=== PATIENT | female | born 1960 | race Caucasian/White ===

== ENCOUNTER → 2017-06-13 10:05 | Outpatient (CLI) | payer OTHER, SELFPAY ==
[2017-05-16 12:30] VITALS: BMI 21.4
[2017-05-16 15:32] VITALS: BP 125/83
--- NOTE | 2017-06-13 10:07 | HPBD_ITS ---
STUDY: DUAL ENERGY X-RAY ABSORPTIOMETRY / DXA REASON FOR EXAM: Female, 57 years old. The patient is postmenopausal. No loss of height. TECHNIQUE: Bone Mineral Density (BMD) measurements of lumbar spine and bilateral hips were obtained. COMPARISON: Comparison is made with prior study dated November 28, 2011. FINDINGS: Lumbar Spine (L1-L4): g/cm2 (1.059) / T-score (-0.9) / Z-score (0.0) Findings are suggestive of normal bone density with a low fracture risk. Increased kyphosis. Left Femur Total: g/cm2 (0.991) / T-score (-0.1) / Z-score (0.6) Left Femoral Neck: g/cm2 (0.908) / T-score (-0.9) / Z-score (0.1) Right Femur Total: g/cm2 (0.971) / T-score (-0.3) / Z-score (0.4) Right Femoral Neck: g/cm2 (0.857) / T-score (-1.3) / Z-score (-0.2) The T-Scores on the most recent prior examination were: Lumbar Spine (L1-L4): There has been worsening of bone density since the previous examination. Left Femur Total: which represents a worsening of 5.3%. Right Femur Total: which represents a worsening of 4.0%. HPBD/Dexa Bone Density Study (HP) IMPRESSION: The patient is considered osteopenic as outlined below according to World [employer] Organization (WHO) criteria with a moderate fracture risk. There has been worsening of bone density since the previous examination. Reference Information: The T-score is the number of standard deviations above or below the standard which is normal for young adults at their peak bone mineral density. The World Health Organization (WHO) interprets the T-scores as follows: Above -1 Normal bone density Between -1 and -2.5 Osteopenia Equal to / or below -2.5 Osteoporosis As a practical clinical guideline, osteopenia may be graded as follows: Mild -1 through -1.5 Moderate -1.6 through -2.0 Severe -2.1 through -2.4 The Z-score is the number of standard deviations above or below age-matched controls. A Z-score of less than -1.5 would be considered abnormal. References: 1. NIH Osteoporosis and Related Bone Diseases http://www.osteo.org 2. International Society for Clinical Densitometry http://www.iscd.org 3. National Osteoporosis Foundation http://www.nof.org Electronically Signed: Dae Hollins MD at 11:01 EST Tel [phone], Service support ,
== END ==
PROVIDERS: Family Provider Family Medicine; PCP Family Medicine; Visit Provider Family Medicine
DX: Z78.0 Asymptomatic menopausal state (principal); M81.0 Age-related osteoporosis without current pathological fracture; M85.80 Other specified disorders of bone density and structure, unspecified site
CPT/HCPCS: 77080

== ENCOUNTER → 2017-06-18 06:57 | Outpatient (CLI) | payer OTHER, SELFPAY ==
--- NOTE | 2017-06-19 07:36 | PFT ---
INTRODUCTION: The patient is a 57-year-old female currently under the care of Dr. Hanson the presents for pulmonary function testing secondary to a diagnosis of shortness of breath. Respiratory therapy reports good patient effort and reports no other concerns. Bronchodilators were used during testing. INTERPRETATION: Forced expiration spirometry demonstrates no evidence of a large airways obstructive ventilatory defect. There was no significant response to aerosolized bronchodilators, based upon strict ATS criteria. Spirograms are of good quality and plateau normally. The respiratory flow volume loop appears normal. Body plethysmography was performed and reveals lung volumes to be within normal limits. The airway resistance is within normal limits. Diffusing capacity by single breath CO is within normal limits at 84% of predicted. IMPRESSION: These pulmonary function studies are essentially within normal limits. There are no previous PFTs for comparison. Clinical correlation is recommended.
== END ==
PROVIDERS: Family Provider Family Medicine; PCP Family Medicine; Visit Provider Family Medicine
DX: R06.00 Dyspnea, unspecified (principal)
CPT/HCPCS: 94060; 94726; 94729

== ENCOUNTER → 2017-08-01 11:48 | Outpatient (CLI) | payer OTHER, SELFPAY ==
[2017-08-02 10:29] LABS: Absolute Lymphocyte Count 0.88 X10^3/ul (0.83-4.51); Absolute Neutrophil Count 4.3 X10^3/uL (2.0-7.7); Basophil# 0.02 X10^3/uL; Basophil% 0.3 % (0-1); Eosinophil# 0.03 X10^3/uL; Eosinophils% 0.5 % (0-5); Lymphocyte # 0.88 X10^3/ul (4.0); Lymphocyte % 14.8 % (19-41); Mean Corp Hgb Conc 33.3 g/gl (32-36); Mean Corpuscular Hgb 32.2 pg (27.0-32.0); Mean Corpuscular Volume 96.5 fL (81-99); Mean Platelet Vol. 9.7 fl (6.2-12.0); Monocyte# 0.67 X10^3/uL; Monocyte% 11.3 % (0-10); Neutrophil # 4.34 X10^3/uL (2.7-7.7); Neutrophil % 72.9 % (47-70); POSITIVE COUNT NO; POSITIVE DIFFERENTIAL NO; POSITIVE MORPHOLOGY NO; Platelet Count 217 K/mm3 (150-450); RBC Distribution Width CV 12.6 % (11.6-14.6); RBC Distribution Width SD 42.8 fl (35.1-43.9); Red Blood Count 3.73 M/mm3 (4.2-5.4)
== END ==
PROVIDERS: Family Provider Family Medicine; PCP Family Medicine; Visit Provider Family Medicine
DX: R50.9 Fever, unspecified (principal); R30.0 Dysuria
CPT/HCPCS: 36415; 85025

== ENCOUNTER → 2017-08-02 13:28 | Outpatient (CLI) | payer OTHER, SELFPAY | PROVIDERS: Family Provider Family Medicine; PCP Family Medicine; Visit Provider Family Medicine | DX: R50.9 Fever, unspecified (principal); R30.0 Dysuria | CPT/HCPCS: 87077; 87086; 87088 ==

== ENCOUNTER 2017-08-03 14:35 | Emergency (ER) | payer OTHER, SELFPAY ==
[2017-08-03 14:35] VITALS: BP 116/69; PULSE 104; RESP 18; TEMP 36.7; O2SAT 99; BMI 21.3
[2017-08-03 14:56] VITALS: PULSE 97; RESP 12; TEMP 36.9; O2SAT 96
--- NOTE | 2017-08-03 15:03 | RAD_ITS ---
STUDY: X-RAY CHEST REASON FOR EXAM: Female, 57 years old. Fever for 7 days, flulike symptoms TECHNIQUE: Single AP portable view of the chest. COMPARISON: 08/26/2013 FINDINGS: The lungs are hyperinflated. There is no focal consolidation. There is no demonstrated pleural abnormality. Normal size heart. Normal mediastinum and arvind. Normal visualized pulmonary arteries. Normal visualized aortic arch and descending thoracic aorta. Normal visualized thoracic spine. Normal visualized ribs, clavicles, and shoulders. Metallic densities along the inferior spine suggest spinal fusion hardware. RAD/Chest 1 View (Portable) IMPRESSION: Hyperinflation. No focal consolidation. Electronically Signed: Isauro Armstrong DO at 15:36 EDT Tel , Service support ,
--- NOTE | 2017-08-03 15:08 | ED.DCSUM_ITS ---
- ER Visit Summary Date of Service: 08/03/17 Chief Complaint: Fever History of Present Illness: The patient is a 57 F presenting with fever ?7 days. Patient states she has had diffuse myalgias. She has had temperatures up to 102.5. She complains of chills. She has had a cough which is mildly productive of sputum. She denies chest pain or shortness of breath. Denies abdominal pain, nausea, vomiting, diarrhea. Denies urinary complaints. She did receive a flu shot this year. Her last Motrin was 11 AM. She has history of breast cancer. She finished chemo in 2016. She is currently on tamoxifen. She was advised by her oncologist to come to the ED. Physical Examination: Vitals are stable. Patient is afebrile. Alert no acute distress. HEENT exam is unremarkable. Pharynx is normal, uvula is midline. Neck is supple. No meningismus Lungs are clear and equal bilaterally. Heart is regular rate and rhythm. Abdomen is soft nontender nondistended. No rebound or guarding Extremities are unremarkable. Skin is warm and dry. No rash No focal neurologic deficit. Remainder of exam is unremarkable. Emergency Department Course and Treatment: Patient was given IV fluids. CBC is unremarkable. Chemistries are normal. Urinalysis unremarkable. Lactic acid is normal. Chest x-ray shows no evidence of consolidation. Influenza is negative. Patient is resting comfortably in the emergency department. She continues to be afebrile. She is advised that despite her negative influenza test she may still have influenza. She is advised to continue fluids and monitoring her temperature at home. Discussed with Dr. Arndt covering for Dr. De La Rosa. agrees with outpatient follow-up. Patient is advised signs and symptoms for which to return to the ED. Disposition: Discharge home Impression: Viral syndrome This note was generated with [employer] dictation software. It may contain incorrect words, spelling, and punctuation that were not noted in review of the chart prior to signing ED Disposition - Plan for ED Patient: Chief Complaint: Fever Instructions: ED Flu Referrals: Liz Hanson DO [Primary Care Provider] -
[2017-08-03 15:11] LABS: Bacteria 0 SEEN /hpf (None Seen); Mucous, Urine 0 SEEN /hpf (<or=2+); Red Blood Cells-Urine 0 SEEN /hpf (0-5)
[2017-08-03 15:14] LABS: Color, Urine Yellow (Yellow); Glucose, Dipstick Normal (Normal); Ketone-Dipstick Negative (Negative); Leukocyte Esterase-Dipstick 500 /ul (Negative); Nitrite-Dipstick Negative (Negative); Occult Blood-Urine 25 /ul (Negative); Protein-Dipstick Negative (Negative); Specific Gravity, Urine 1.005 (1.002-1.030); Urine Bilirubin Dipstick Negative (Negative); Urine Clarity Clear (Clear); Urine Urobilinogen Normal (Normal); Urine pH 6.5 (5.0 - 8.0)
[2017-08-03] MEDS: 0.9% Normal Saline 1,000 ML 1000 ML IV (15:18)
[2017-08-03 15:23] LABS: Anion Gap 8 (5-15); BUN 15 mg/dL (7-18); BUN/Creat Ratio 19.9 RATIO (10-20); Calcium,Total 8.6 mg/dL (8.5-10.1); Chloride 104 mmol/L (98-107); Creatinine, Serum 0.75 mg/dL (0.55-1.02); EST Glomerular Filtration Rate 84 mL/min (>60); Est Glom Filt Rate - Afr Amer 102 mL/min (>60); Estimated Creatinine Clearance 69.28 ml/min; Glucose 132 mg/dL (74-106); Potassium 3.7 mmol/L (3.5-5.1); Sodium Level 138 mmol/L (136-145)
[2017-08-03 15:29] LABS: Absolute Lymphocyte Count 1.13 X10^3/ul (0.83-4.51); Absolute Neutrophil Count 6.6 X10^3/uL (2.0-7.7); Basophil# 0.04 X10^3/uL; Basophil% 0.5 % (0-1); Eosinophil# 0.03 X10^3/uL; Eosinophils% 0.4 % (0-5); Hemoglobin 11.4 g/dl (12.0-15.0); Lymphocyte # 1.13 X10^3/ul (4.0); Lymphocyte % 13.3 % (19-41); Mean Corp Hgb Conc 32.6 g/gl (32-36); Mean Corpuscular Volume 95.1 fL (81-99); Mean Platelet Vol. 9.8 fl (6.2-12.0); Monocyte# 0.73 X10^3/uL; Monocyte% 8.6 % (0-10); Neutrophil # 6.55 X10^3/uL (2.7-7.7); Platelet Count 245 K/mm3 (150-450); RBC Distribution Width CV 12.8 % (11.6-14.6); RBC Distribution Width SD 44.2 fl (35.1-43.9); Red Blood Count 3.68 M/mm3 (4.2-5.4); White Blood Count 8.5 K/mm3 (4.4-11.0)
[2017-08-03 15:32] LABS: Lactic Acid 1.9 mmol/L (0.4-2.0); Squamous Epithelial Cells - UA 0-5 SEEN /hpf (5-10); White Blood Cells 0-5 SEEN /hpf (0-5)
[2017-08-03 15:41] LABS: POSITIVE COUNT NO; POSITIVE DIFFERENTIAL NO; POSITIVE MORPHOLOGY NO
[2017-08-03 15:49] VITALS: BP 120/74; PULSE 92; RESP 14; O2SAT 98
[2017-08-03 16:09] VITALS: BP 118/70; PULSE 80; RESP 14; O2SAT 99
[2017-08-03 17:20] VITALS: BP 112/70; PULSE 85; RESP 14; O2SAT 99
--- NOTE | 2017-08-03 17:34 | ED.DEP ---
ED Disposition - Plan for ED Patient: Chief Complaint: Fever Instructions: ED Flu Referrals: Liz Hanson DO [Primary Care Provider] -
[2017-08-03 17:56] VITALS: PULSE 98; RESP 15; O2SAT 96
== END 2017-08-03 17:56 | disposition home or self-care (01) ==
PROVIDERS: Emergency Provider Emergency Medicine; Family Provider Family Medicine; PCP Family Medicine
DX: B34.9 Viral infection, unspecified (principal); R50.9 Fever, unspecified; R05 Cough; M79.1 Myalgia; Z85.3 Personal history of malignant neoplasm of breast; Z92.21 Personal history of antineoplastic chemotherapy; Z79.899 Other long term (current) drug therapy
CPT/HCPCS: 71045; 80048; 81001; 83605; 85025; 87804; 96360; 96361; 99284; J7030; A4216

== ENCOUNTER → 2017-08-15 11:10 | Outpatient (CLI) | payer OTHER, SELFPAY ==
[2017-08-15 12:45] LABS: Vitamin B12 1065 pg/mL (211-911)
== END ==
PROVIDERS: Family Provider Family Medicine; PCP Family Medicine; Visit Provider Internal Medicine Critical Care Medicine
DX: R06.02 Shortness of breath (principal); R53.83 Other fatigue
CPT/HCPCS: 36415; 82607

== ENCOUNTER → 2017-09-20 14:10 | Outpatient (CLI) | payer OTHER, SELFPAY ==
[2017-09-20 15:59] LABS: T4 Total, Thyroxin 9.1 ug/dL (4.8-13.9); Thyroid Stim Hormone (TSH) 1.93 uIU/mL (0.358-3.74)
== END ==
PROVIDERS: Family Provider Family Medicine; PCP Family Medicine; Visit Provider Internal Medicine Cardiovascular Disease
DX: R00.0 Tachycardia, unspecified (principal)
CPT/HCPCS: 36415; 84436; 84443

== ENCOUNTER → 2017-09-24 13:30 | Outpatient (CLI) | payer OTHER, SELFPAY ==
--- NOTE | 2017-09-24 13:32 | CT_ITS ---
STUDY: CT CHEST WITHOUT CONTRAST REASON FOR EXAM: Female, 57 years old. Wheezing. History of breast cancer with bilateral mastectomy, chemotherapy and radiation. RADIATION DOSAGE (If Supplied By Facility): CTDIvol = ( 6.52 ) mGy, DLP = ( 245.87 ) mGycm TECHNIQUE: Transaxial imaging was performed without the administration of intravenous contrast material. Multiplanar coronal and sagittal images were reformatted. Individualized dose optimization techniques were used for this CT. COMPARISON: Chest, August 03, 2017. FINDINGS: The lungs are mildly hyperexpanded. There is minimal subpleural fibrosis in the anterior left upper lobe . The lungs are otherwise clear. There is no demonstrated pleural abnormality. Normal heart and pericardium. There is nonspecific subcentimeter mediastinal lymphadenopathy. Normal hilar regions. Normal unenhanced pulmonary arteries. Normal aorta arch and descending thoracic aorta. There is slight exaggeration of thoracic kyphosis with degenerative changes of thoracic spine. There is no fracture or destructive osseous pathology. There is absence of bilateral breast tissues. There is no evidence of axillary lymphadenopathy or soft tissue abnormality. There is no demonstrated abnormality of the visualized upper abdomen. CT/Chest without Contrast IMPRESSION: 1. Minimal fibrotic changes in the subpleural anterior left upper lobe. This may be related to prior radiation. 2. No evidence of acute intrathoracic abnormality. 3. Status post bilateral mastectomies. Electronically Signed: Gulshan Sanford DO at 14:03 EDT Tel [phone], Service support ,
== END ==
PROVIDERS: Family Provider Family Medicine; PCP Family Medicine; Visit Provider Internal Medicine Critical Care Medicine
DX: R06.02 Shortness of breath (principal); R00.0 Tachycardia, unspecified
CPT/HCPCS: 71250; 93225; 93226

== ENCOUNTER → 2017-10-16 07:07 | Outpatient (CLI) | payer OTHER, SELFPAY ==
--- NOTE | 2017-10-16 15:48 | PFTCOMP ---
COMPLETE PULMONARY FUNCTION TEST INTERPRETATION Brief HPI: Patient is a 57 year old female, currently under the care of myself, who presents to [facility] for complete pulmonary function tests secondary to diagnosis of dyspnea. Respiratory therapist reports good effort and reproducible results. Interpretation: Forced expiration spirometry shows no large airways obstructive ventilatory defect with an FEV1 of 95% predicted. There is no significant bronchodilator response by ATS criteria. Spirograms are of good quality and plateau normally. The respiratory flow volume loop shows a normal pattern. Lung volumes by body plethysmography show a normal total lung capacity at 4.68 L, 99% predicted. All other lung volumes are within normal limits. Diffusion capacity by carbon monoxide is normal at 89% predicted. The airway resistance is normal. Compared to previous pulmonary function tests from to June 18, 2017, there has been a significant improvement in lung volumes. Impression: These pulmonary function tests are within normal limits. There has been improvement in restriction compared to previous studies.
--- NOTE | 2017-10-16 15:51 | PFTCOMP_ITS ---
COMPLETE PULMONARY FUNCTION TEST INTERPRETATION Brief HPI: Patient is a 57 year old female, currently under the care of myself, who presents to [facility] for complete pulmonary function tests secondary to diagnosis of dyspnea. Respiratory therapist reports good effort and reproducible results. Interpretation: Forced expiration spirometry shows no large airways obstructive ventilatory defect with an FEV1 of 95% predicted. There is no significant bronchodilator response by ATS criteria. Spirograms are of good quality and plateau normally. The respiratory flow volume loop shows a normal pattern. Lung volumes by body plethysmography show a normal total lung capacity at 4.68 L , 99% predicted. All other lung volumes are within normal limits. Diffusion capacity by carbon monoxide is normal at 89% predicted. The airway resistance is normal. Compared to previous pulmonary function tests from to June 18, 2017, there has been a significant improvement in lung volumes. Impression: These pulmonary function tests are within normal limits. There has been improvement in restriction compared to previous studies.
== END ==
PROVIDERS: Family Provider Family Medicine; PCP Family Medicine; Visit Provider Internal Medicine Critical Care Medicine
DX: R06.00 Dyspnea, unspecified (principal)
CPT/HCPCS: 94060; 94726; 94729

== ENCOUNTER → 2017-10-16 07:11 | Outpatient (CLI) | payer OTHER, SELFPAY ==
--- NOTE | 2017-10-16 07:11 | ECHOD_ITS ---
Reason For Study: Arrhythmia Procedure This was a 2D Doppler, Color Flow transthoracic echocardiogram. Exam performed in department. Left Ventricle Normal LV size. Left ventricular systolic function is normal. The estimated ejection fraction is 55 %. Transmitral diastolic flow velocities suggest mild (stage 1) diastolic dysfunction (reversed pattern). No regional wall motion abnormalities noted. Right Ventricle Normal RV size. Normal systolic function. Atria Normal left atrium. Normal right atrium. Mitral Valve Normal mitral valve. Trivial eccentric mitral valve insufficiency. Tricuspid Valve Normal tricuspid valve. Mild tricuspid valve insufficiency. Aortic Valve Normal aortic valve. Trisinus/trileaflet aortic valve. Pulmonic Valve Normal pulmonic valve. Great Vessels Normal aortic root. The pulmonary artery is normal size. Normal inferior vena cava. Pericardium/Pleural No pericardial effusion. MMode/2D Measurements & Calculations LVIDd: 4.3 cm IVSd: 0.75 cm Ao root diam: 2.9 cm LVIDs: 3.0 cm LVPWd: 0.68 cm LA dimension: 2.9 cm RVDd: 2.5 cm FS: 30.4 % LAV(MOD-bp): 40.4 ml EDV(MOD-sp4): 82.6 ml SV(MOD-sp4): 48.6 ml LAV(MOD-bp) Indexed: 26.4 ml/m2 ESV(MOD-sp4): 34.0 ml LAV(MOD-sp2): 39.1 ml EF(MOD-sp4): 58.9 % LAV(MOD-sp4): 41.2 ml LA A4 area: 15.4 cm2 RA A4 area: 11.0 cm2 Doppler Measurements & Calculations MV E max silverio: 42.7 cm/sec Lat Peak E' Silverio: 9.1 cm/sec Med Peak E' Silverio: 4.1 cm/sec MV A max silverio: 74.4 cm/sec E/E' lat: 4.7 E/E' med: 10.3 MV E/A: 0.57 Ao V2 max: 130.9 cm/sec LV V1 max: 106.4 cm/sec PA V2 max: 85.9 cm/sec Ao max P.9 mmHg LV V1 max P.5 mmHg Interpretation Summary Normal LV size. Left ventricular systolic function is normal. The estimated ejection fraction is 55 %. Transmitral diastolic flow velocities suggest mild (stage 1) diastolic dysfunction (reversed pattern). Global longitudinal strain of -16(nl) Ordering Physician: Florentino Vargas Referring Physician: Liz Hanson Performed By: Summer Comer RDCS
== END ==
PROVIDERS: Family Provider Family Medicine; PCP Family Medicine; Visit Provider Internal Medicine Cardiovascular Disease
DX: I49.8 Other specified cardiac arrhythmias (principal); I43 Cardiomyopathy in diseases classified elsewhere
CPT/HCPCS: 93306

== ENCOUNTER → 2018-01-02 14:39 | Outpatient (CLI) | payer OTHER, SELFPAY | PROVIDERS: Family Provider Family Medicine; PCP Family Medicine; Visit Provider Surgery | DX: M79.644 Pain in right finger(s) (principal); M60.241 Foreign body granuloma of soft tissue, not elsewhere classified, right hand | CPT/HCPCS: 73140 ==

== ENCOUNTER → 2018-01-24 06:31 | Outpatient (CLI) | payer OTHER, SELFPAY ==
--- NOTE | 2018-01-24 06:33 | MRI_ITS ---
STUDY: MRI RIGHT HAND (ATTENTION THIRD FINGER) REASON FOR EXAM: Redness, swelling and pain of the middle finger. TECHNIQUE: Standardized fat and water weighted pulse sequences were obtained in all 3 orthogonal planes. COMPARISON: Radiographs 01/02/2018. FINDINGS: Normal phalanges and visualized metacarpal of the third finger. Normal flexor and extensor tendons of the third digit. Normal third metacarpophalangeal joint. Normal third proximal and distal interphalangeal joints. There is edema in the subcutis adipose space palmar to the third middle phalanx (inversion recovery sagittal images 8-10; inversion recovery axial images 25, 26) without soft tissue abscess or signal void to indicate foreign body. MRI/Upper Ext/No Jt/ wo IMPRESSION: Edema in the subcutis adipose space palmar to the third middle phalanx without demonstrated signal void to indicate foreign body. Electronically Signed: Angelo Marshall MD at 15:29 EDT Tel , Service support ,
== END ==
PROVIDERS: Family Provider Family Medicine; PCP Family Medicine; Visit Provider Surgery
DX: M79.644 Pain in right finger(s) (principal); M60.241 Foreign body granuloma of soft tissue, not elsewhere classified, right hand
CPT/HCPCS: 73218

== ENCOUNTER → 2018-05-03 10:02 | Outpatient (CLI) | payer OTHER, SELFPAY ==
[2018-03-22 09:44] VITALS: BMI 21.0
--- NOTE | 2018-05-03 10:05 | RAD_ITS ---
STUDY: X-RAY - RIGHT ELBOW REASON FOR EXAM: Female, 58 years old. Elbow pain. TECHNIQUE: 3 view(s) of the elbow. COMPARISON: None. FINDINGS: Normal visualized humerus, radius and ulna. Normal radiocapitellar and ulnotrochlear articulations. The soft tissue structures are unremarkable. RAD/Elbow min 3 Views IMPRESSION: Normal x-ray examination of the elbow. Electronically Signed: Nadeem Ham MD at 17:59 EST , Service support ,
== END ==
PROVIDERS: Family Provider Family Medicine; PCP Family Medicine; Referring Provider Orthopaedic Surgery; Visit Provider Orthopaedic Surgery
DX: M77.01 Medial epicondylitis, right elbow (principal)
CPT/HCPCS: 73080

== ENCOUNTER 2018-05-09 09:54 | Outpatient (RCR) | payer OTHER, SELFPAY ==
[2018-03-22 09:44] VITALS: BMI 21.0
--- NOTE | 2018-05-10 08:08 | HP.OTEVAL ---
Patient's Visit Information CASPER RUBI is a 58 year old F, referred to Occupational Therapy by Anamaria Vargas DO, with a diagnosis of right Med. epicondylitis. Date of Evaluation: 05/09/18 Occupational Therapist: Zuly Levi, OTR/L, CHT - Subjective Subjective: Pt states she has had been painful on and off for two years- states now pain is limiting her use of her right arm during home mtg. tasks and use with daily occupations as driving, dressing and cooking. client states pain does wake her up at night- pt has not tried any conservative surendra/ or bracing at this time. Pt would like to regain strenght and decrease her pain to return to PLOF. - Pain right elbow 3 Pain Intensity Range: 0, 7 - ROM Wrist: WNL - Strength Shoulder: right 4/5 left 5/5 Elbow: right 4/5 left 5/5 Forearm: right 4/5 left 5/5 Wrist: right 4/5 left 5/5 Pharmacy Services Director: right 35# left 45# Lateral Pinch: right 12# left 12# Tripod Pinch: right 10# left 10# Strength Comments: client is right handed - Sensation Thumb: R/L 2.83 Index: R/L 2.83 Middle: R/L 2.83 Ring: R/L 2.83 Little: R/L 2.83 - Special Tests Elbow Flexion/Elbow Exension Test Supine - Elbow Fracture: positive - Goals Goal:: PT will demo an increase in director database strength by 20# to increase independent with basic occupations of daily living to return pt to PLOF by D/C. Goal:: Pt will report pain no greater than 1/10 with use of affected hand with BADLs and IADLs by d/c. Goal:: Pt will demo understanding of work/lifting and carry ergonomics to decrease stress on tendons to increase pts ind. with ADLs and IADLS and work tasks by d/c. - Rehabilitation General Assessment: Pt demo with positive med. epicondylitis- client has had symptoms for greater than 6 months. Pain has decreased pts ind. with BADLs and IADS. Pt demo with a decrease in right UB strength limiting ind. use of her right UE. Pt would benefit from skilled OTR/L, CHT services 2x week for 3-4 weeks. Today therapy ed. pt on what lateral epicondylitis is, and ed. pt on therapist use of modalities, bracing and strengthening to return pt to PLOF. Pt demo understanding and agres of treatment plan. Rehabilitation Potential: Good - Anticipated Interventions Anticipated Interventions: A/AAROM/PROM, Strengthening, Modalities, Orthoses, Home Program - Visit Plan Frequency: 2x /Week Duration: 3 Weeks TEXT: Thank you for the opportunity to evaluate your patient. For Medicare and Medicare HMO plans, please review the plan of care and approve it. It will need to be FAXED BACK to us at [phone] for Medicare purposes. Please let me know if there are questions or concerns regarding this plan of care. Physician Signature: Date:
--- NOTE | 2018-05-10 08:29 | HP.OTEVAL_ITS ---
Patient's Visit Information CASPER RUBI is a 58 year old F, referred to Occupational Therapy by Anamaria Vargas DO, with a diagnosis of right Med. epicondylitis. Date of Evaluation: 05/09/18 Occupational Therapist: Zuly Levi, OTR/L, CHT - Subjective Subjective: Pt states she has had been painful on and off for two years- states now pain is limiting her use of her right arm during home mtg. tasks and use with daily occupations as driving, dressing and cooking. client states pain does wake her up at night- pt has not tried any conservative surendra/ or bracing at this time. Pt would like to regain strenght and decrease her pain to return to PLOF. - Pain right elbow 3 Pain Intensity Range: 0, 7 - ROM Wrist: WNL - Strength Shoulder: right 4/5 left 5/5 Elbow: right 4/5 left 5/5 Forearm: right 4/5 left 5/5 Wrist: right 4/5 left 5/5 Regional Liaison: right 35# left 45# Lateral Pinch: right 12# left 12# Tripod Pinch: right 10# left 10# Strength Comments: client is right handed - Sensation Thumb: R/L 2.83 Index: R/L 2.83 Middle: R/L 2.83 Ring: R/L 2.83 Little: R/L 2.83 - Special Tests Elbow Flexion/Elbow Exension Test Supine - Elbow Fracture: positive - Goals Goal:: PT will demo an increase in branch retail executive strength by 20# to increase independent with basic occupations of daily living to return pt to PLOF by D/C. Goal:: Pt will report pain no greater than 1/10 with use of affected hand with BADLs and IADLs by d/c. Goal:: Pt will demo understanding of work/lifting and carry ergonomics to decrease stress on tendons to increase pts ind. with ADLs and IADLS and work tasks by d/c. - Rehabilitation General Assessment: Pt demo with positive med. epicondylitis- client has had symptoms for greater than 6 months. Pain has decreased pts ind. with BADLs and IADS. Pt demo with a decrease in right UB strength limiting ind. use of her right UE. Pt would benefit from skilled OTR/L, CHT services 2x week for 3-4 weeks. Today therapy ed. pt on what lateral epicondylitis is, and ed. pt on therapist use of modalities, bracing and strengthening to return pt to PLOF. Pt demo understanding and agres of treatment plan. Rehabilitation Potential: Good - Anticipated Interventions Anticipated Interventions: A/AAROM/PROM, Strengthening, Modalities, Orthoses, Home Program - Visit Plan Frequency: 2x /Week Duration: 3 Weeks TEXT: Thank you for the opportunity to evaluate your patient. For Medicare and Medicare HMO plans, please review the plan of care and approve it. It will need to be FAXED BACK to us at [phone] for Medicare purposes. Please let me know if there are questions or concerns regarding this plan of care. Physician Signature: Date:
--- NOTE | 2018-11-19 08:12 | HP.OT.NRP ---
HP - Discharge Summary - Patient Information CASPER RUBI was seen in my office for initial evaluation on 05/09/18. The following Plan of Care was established for this patient: Initial Frequency: 2x /Week Initial Duration: 3 Weeks - Anticipated Interventions Anticipated Interventions: A/AAROM/PROM, Strengthening, Modalities, Orthoses, Home Program This patient was last seen in our office 05/09/18. Pertinent comments regarding their Occupational therapy will appear below: pt was seen for OT eval only- therapist gave info on HEP. pt demo understanding. Pt has not scheduled further apts and due to time lapse in care is d/c at this time. At this point I will be discontinuing this patient from occupational therapy. I would be happy to see this patient again in the future if found appropriate by the physician. Thank you! Zuly Levi, OTR/L, CHT
== END 2018-05-09 19:00 | disposition home or self-care (01) ==
LOC: OT 09:54
PROVIDERS: Family Provider Family Medicine; PCP Family Medicine; Referring Provider Orthopaedic Surgery; Visit Provider Orthopaedic Surgery
DX: M77.01 Medial epicondylitis, right elbow (principal)
CPT/HCPCS: 97035; 97166

== ENCOUNTER → 2018-05-17 07:41 | Outpatient (CLI) | payer OTHER, SELFPAY ==
[2018-05-13 13:48] VITALS: BMI 20.9
--- NOTE | 2018-05-17 07:43 | NM_ITS ---
CLINICAL: 58-year-old female with reported history of primary breast carcinoma with current complaint of bilateral hip pain. WHOLE BODY 99m Tc MDP RADIONUCLIDE BONE SCINTIGRAPHY COMPARISON: None available FINDINGS: Following the intravenous administration of 25.3 mCi of 99m Tc MDP, whole body bone images reveal: 1. Increased radiopharmaceutical concentration is identified in the mid cervical spine posteriorly on the left, the right knee articulation, glenohumeral compartments of both shoulders, dorsal medial compartment of the left ankle. 2. The remaining skeletal structures are scintigraphically unremarkable with normal-appearing renal images and urinary bladder activity identified. NM/Bone Scan Whole Body IMPRESSION: 1. The increase in radiopharmaceutical concentration identified in the cervical spine, bilateral shoulders, right knee and left ankle is commensurate with degenerative arthritis. 2. Meticulous attention paid to the bilateral hip articulations demonstrate no definitive scintigraphic abnormalities. There is no definitive typical evidence of diffuse axial skeletal metastatic disease on the current examination. Electronically Signed: Billy Foster DO at 8:07 EST Tel , Service support ,
== END ==
PROVIDERS: Family Provider Family Medicine; PCP Family Medicine; Referring Provider Internal Medicine Medical Oncology; Visit Provider Internal Medicine Medical Oncology
DX: M25.551 Pain in right hip (principal); M25.552 Pain in left hip; Z85.3 Personal history of malignant neoplasm of breast
CPT/HCPCS: 78306

== ENCOUNTER → 2018-08-06 12:53 | Outpatient (CLI) | payer OTHER, SELFPAY ==
[2018-05-31 09:05] VITALS: BMI 20.9
== END ==
PROVIDERS: Family Provider Family Medicine; PCP Family Medicine; Referring Provider Dermatology; Visit Provider Dermatology
DX: L56.8 Other specified acute skin changes due to ultraviolet radiation (principal); L98.8 Other specified disorders of the skin and subcutaneous tissue; L21.8 Other seborrheic dermatitis; H01.139 Eczematous dermatitis of unspecified eye, unspecified eyelid
CPT/HCPCS: 87070; 87077; 87186; 87205

== ENCOUNTER → 2018-11-19 15:45 | Outpatient (CLI) | payer OTHER, SELFPAY ==
[2018-09-24 15:11] VITALS: BMI 19.8
== END ==
PROVIDERS: Family Provider Family Medicine; PCP Family Medicine; Referring Provider Dermatology; Visit Provider Dermatology
DX: L03.012 Cellulitis of left finger (principal)
CPT/HCPCS: 87070; 87077; 87186; 87205

== ENCOUNTER → 2018-11-26 08:07 | Outpatient (CLI) | payer OTHER, SELFPAY ==
[2018-09-24 15:11] VITALS: BMI 19.8
--- NOTE | 2018-11-26 08:12 | CT_ITS ---
STUDY: CT ABDOMEN AND PELVIS WITH CONTRAST REASON FOR EXAM: Female, 58 years old. Left breast cancer with chemotherapy and radiation. History of bilateral mastectomy. RADIATION DOSAGE (If Supplied By Facility): CTDIvol = ( 9.24 ) mGy, DLP = ( 521.83 ) mGycm TECHNIQUE: Transaxial images were obtained from the dome of the diaphragm to the symphysis pubis with oral contrast. 100CC IV Isovue 300 was administered. Sagittal and coronal images were reconstructed. Individualized dose optimization techniques were used for this CT. COMPARISON: CT of the chest September 10, 2018. FINDINGS: The visualized lung bases are unremarkable. The visualized portions of the heart are within normal limits. Normal liver. Normal gallbladder and extrahepatic biliary system. Normal spleen. Normal pancreas. Normal bilateral adrenal glands. Normal right kidney. Normal left kidney. Normal visualized stomach. Normal small intestine. Normal colon. The appendix is visualized and appears normal. Normal abdominal aorta. Normal inferior vena cava. Normal retroperitoneum. Normal urinary bladder. Status post hysterectomy. There is no pelvic mass or lymphadenopathy. No free air or free fluid is seen within the peritoneal cavity. Normal abdominal wall. There are mild degenerative changes of the lumbar spine with L4-[address]/Abdomen/Pelvis WITH Contrast IMPRESSION: 1. No evidence of metastatic disease. 2. No evidence of acute intra-abdominal or pelvic process. 3. L4-5 fusion. Electronically Signed: Gulshan Sanford DO at 12:05 EDT Tel [phone], Service support ,
--- NOTE | 2018-11-26 08:12 | CT_ITS ---
HISTORY: Left breast carcinoma chemotherapy and history of mastectomy COMPARISON: CT chest 09/24/2017 TECHNIQUE: Helical CT axial images of the thorax with 100 ml of Isovue 300 intravenous contrast. Multiplanar reconstruction. A radiation dose optimization technique was used for this scan. # of images incl. paperwork: [id number] FINDINGS: LUNGS: Hyperinflated lungs. No pulmonary masses or suspicious nodules. No consolidation or atelectasis. MEDIASTINUM: No abnormally enlarged mediastinal or hilar lymph nodes. PLEURA: No pleural effusion. No pneumothorax. CARDIAC: Normal heart size. No pericardial effusion. VASCULAR: Thoracic aorta is normal in caliber without aneurysm. The pulmonary vasculature demonstrates no significant dilatation. CHEST WALL: Status post bilateral mastectomy. No abnormal axillary lymphadenopathy. BONES: Mild thoracic kyphosis. No suspicious osseous lytic or blastic lesions seen. UPPER ABDOMEN: The visualized upper abdomen demonstrates no acute abnormality. CT/Chest WITH Contrast IMPRESSION: 1. No evidence for malignancy or metastatic disease. 2. Hyperinflated lungs. 3. No acute cardiopulmonary disease. 4. Additional stable findings: Status post bilateral mastectomy. Mild thoracic kyphosis. Individualized dose optimization techniques were used for this CT. at 1630 Reported and signed by: Lexa Andrew MD Electronically Signed: Lexa Andrew MD at 16:29 EDT Tel , Service support ,
== END ==
PROVIDERS: Family Provider Family Medicine; PCP Family Medicine; Referring Provider Internal Medicine Medical Oncology; Visit Provider Internal Medicine Medical Oncology
DX: Z85.3 Personal history of malignant neoplasm of breast (principal)
CPT/HCPCS: 71260; 74177; Q9967

== ENCOUNTER → 2019-02-11 10:09 | Outpatient (CLI) | payer OTHER, SELFPAY ==
[2019-02-11 09:57] VITALS: BMI 19.8
--- NOTE | 2019-02-11 10:10 | RAD_ITS ---
STUDY: X-RAY - LEFT ELBOW REASON FOR EXAM: Female, 58 years old. Pain TECHNIQUE: 3 view(s) of the elbow. COMPARISON: None. FINDINGS: Normal visualized humerus, radius and ulna. Normal radiocapitellar and ulnotrochlear articulations. The soft tissue structures are unremarkable. RAD/Elbow min 3 Views IMPRESSION: Normal x-ray examination of the elbow. Electronically Signed: Priyanka Franklin MD at 11:54 EDT , Service support ,
== END ==
PROVIDERS: Family Provider Family Medicine; PCP Family Medicine; Referring Provider Orthopaedic Surgery; Visit Provider Orthopaedic Surgery
DX: M77.12 Lateral epicondylitis, left elbow (principal)
CPT/HCPCS: 73080

== ENCOUNTER 2019-03-12 08:00 | Outpatient (RCR) | payer OTHER, SELFPAY ==
[2019-02-11 10:44] VITALS: BMI 19.8
--- NOTE | 2019-02-28 09:10 | HP.OTEVAL_ITS ---
Patient's Visit Information CASPER RUBI is a 58 year old F, referred to Occupational Therapy by Anamaria Vargas DO, with a diagnosis of right elbow medial epicondylitis, left elbow lateral epicondylitis.. Date of Evaluation: 02/27/19 Occupational Therapist: Zuly Levi, SUKHDEEP/Eliza, CHT - Subjective Subjective: This 58 year old female was seen for OT eval with dx of lat. epi- right started in november- left started in Dec. pt state in Dec she was golfing and she had instant pain- pt states she had injection in both 2 weeks ago-. pt states she continues to struggle with daily tasks due to bilateral elbow pain. pt states currently left is more painful than right. 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 Miscellaneous: Carry shopping bag, Use hand tools, Use power tools, Drive, Carry luggage - Pain right elbow 1 Pain Intensity Range: 1, 6 left elbow 1 Pain Intensity Range: 1, 8 - Strength Shoulder: right 4-/5 left 4/5 Elbow: right 4-/5 left 4/5 Forearm: right 4/5 left 4/5 [employer] Certified Network Associate: right 50# left 45# Lateral Pinch: right 14# left 10# Tripod Pinch: rigjht 10# left 10# Strength Comments: right straight 40# left 25# - Sensation Sensation Comments: denies - Special Tests Lat Epiconylitis - as named: positive left - Goals Goal:: Pt will demo increase in bilateral shoulder strength to 5/5 to return to pLOF with ADLs and IADLS by d/c Goal:: Pt will report pain no greater than 1/10 with use of bilateral UE for IADLs by d/c Goal:: Pt will demo understanding of bilateral activity modification to decrease stress on tendons/ligaments of bilateral UE by 3rd visit. Goal:: pt will return to PLOF with use of joint protection- work ergonomics by d/c - Rehabilitation General Assessment: pt demo with positive medial/lateral epi. pt had cortisone shot with what she feels if fair results. Pt demo with weakness of UB and pain with daily occupations. pt would benefit from skilled OT services 1-2 xweek for 3 weeks to ed. pt on activity modification, lateral epi precautions, and medial epi countor fource measures. Today pt was ed.on RICE- counter fource brace for left elbow, right wrist brace to limit wrist flex/ext. pt ed.on use of K-tape to use with golfing. Therapist initiated isometric shoulder/bicep/tricp ex and gave handout- pt demo understanding and agree to POC. Rehabilitation Potential: Good - Anticipated Interventions Anticipated Interventions: A/AAROM/PROM, Strengthening, Triggerpoint Release, Modalities, Orthoses, Joint Protection/Energy Conservation, Ergonomic Education - Visit Plan Frequency: 1-2x /Week Duration: 4 Weeks TEXT: Thank you for the opportunity to evaluate your patient. For Medicare and Medicare HMO plans, please review the plan of care and approve it. It will need to be FAXED BACK to us at [phone] for Medicare purposes. Please let me know if there are questions or concerns regarding this plan of care. Physician Signat ure: Date:
--- NOTE | 2019-02-28 09:13 | HP.OTEVAL ---
Patient's Visit Information CASPER RUBI is a 58 year old F, referred to Occupational Therapy by Anamaria Vargas DO, with a diagnosis of right elbow medial epicondylitis, left elbow lateral epicondylitis.. Date of Evaluation: 02/27/19 Occupational Therapist: Zuly Levi, SUKHDEEP/Eliza, CHT - Subjective Subjective: This 58 year old female was seen for OT eval with dx of lat. epi- right started in november- left started in Dec. pt state in Dec she was golfing and she had instant pain- pt states she had injection in both 2 weeks ago-. pt states she continues to struggle with daily tasks due to bilateral elbow pain. pt states currently left is more painful than right. 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 Gluer: right 50# left 45# Lateral Pinch: right 14# left 10# Tripod Pinch: rigjht 10# left 10# Strength Comments: right straight 40# left 25# - Sensation Sensation Comments: denies - Special Tests Lat Epiconylitis - as named: positive left - Quick DASH-Disab of Arm,Shoulder& Hand Quick DASH Score: 34.0900 - Tennis Elbow Tennis Elbow Score: 50 - Goals Goal:: Pt will demo increase in bilateral shoulder strength to 5/5 to return to pLOF with ADLs and IADLS by d/c Goal:: Pt will report pain no greater than 1/10 with use of bilateral UE for IADLs by d/c Goal:: Pt will demo understanding of bilateral activity modification to decrease stress on tendons/ligaments of bilateral UE by 3rd visit. Goal:: pt will return to PLOF with use of joint protection- work ergonomics by d/c - Rehabilitation General Assessment: pt demo with positive medial/lateral epi. pt had cortisone shot with what she feels if fair results. Pt demo with weakness of UB and pain with daily occupations. pt would benefit from skilled OT services 1-2 xweek for 3 weeks to ed. pt on activity modification, lateral epi precautions, and medial epi countor fource measures. Today pt was ed.on RICE- counter fource brace for left elbow, right wrist brace to limit wrist flex/ext. pt ed.on use of K-tape to use with golfing. Therapist initiated isometric shoulder/bicep/tricp ex and gave handout- pt demo understanding and agree to POC. Rehabilitation Potential: Good - Anticipated Interventions Anticipated Interventions: A/AAROM/PROM, Strengthening, Triggerpoint Release, Modalities, Orthoses, Joint Protection/Energy Conservation, Ergonomic Education - Visit Plan Frequency: 1-2x /Week Duration: 4 Weeks TEXT: Thank you for the opportunity to evaluate your patient. For Medicare and Medicare HMO plans, please review the plan of care and approve it. It will need to be FAXED BACK to us at [phone] for Medicare purposes. Please let me know if there are questions or concerns regarding this plan of care. Physician Signature: Date:
--- NOTE | 2019-04-11 12:36 | HP.OTDCSUM ---
HP - OT D/C Summary It has been my pleasure to treat CASPER RUBI under orders from Anamaria Vargas DO, for the diagnosis of right elbow medial epicondylitis, left elbow lateral epicondylitis. for a total of 4 visit(s). Please see the following information for a summary of their discharge status. - Objective Objective/Function: pt is reports little pain- feels the UE PRE are helping. pt demo good understanding of HEP- pt given handout to cont. to refer to for clarification- pt d/c as she is heading out of town - Goals Patient Goals: Regain Mobility, Regain Strength, Decrease Pain, Improve Fine Motor Skills, Use Hand/Wrist/Arm Normally Again, Be More Independent in ADLS Goal:: Pt will demo increase in bilateral shoulder strength to 5/5 to return to pLOF with ADLs and IADLS by d/c Goal:: Pt will report pain no greater than 1/10 with use of bilateral UE for IADLs by d/c Goal:: Pt will demo understanding of bilateral activity modification to decrease stress on tendons/ligaments of bilateral UE by 3rd visit. Goal:: pt will return to PLOF with use of joint protection- work ergonomics by d/c - Plan Plan: cont with t-band, eccentric for wrist - D/C Information If there are questions or concerns regarding this patient's occupational therapy, please fell free to call me at [phone]. Thank you for the referral of this patient. Sincerely, Zuly Levi, OTR/L, CHT
== END 2019-03-12 19:00 | disposition home or self-care (01) ==
LOC: OT 08:00
PROVIDERS: Family Provider Family Medicine; PCP Family Medicine; Referring Provider Orthopaedic Surgery; Visit Provider Orthopaedic Surgery
DX: M77.12 Lateral epicondylitis, left elbow (principal); M77.01 Medial epicondylitis, right elbow
CPT/HCPCS: 97110; 97140; 97166

== ENCOUNTER → 2019-04-23 20:28 | Outpatient (CLI) | payer OTHER, SELFPAY ==
[2019-03-06 16:16] VITALS: BMI 19.8
[2019-04-23] MEDS: Zolpidem Tartrate 5 MG Tablet PO (21:40)
== END ==
PROVIDERS: Family Provider Family Medicine; PCP Family Medicine; Referring Provider Nurse Practitioner Acute Care; Visit Provider Nurse Practitioner Acute Care
DX: G47.10 Hypersomnia, unspecified (principal)
CPT/HCPCS: 95810

== ENCOUNTER → 2019-04-24 06:08 | Outpatient (CLI) | payer OTHER, SELFPAY ==
[2019-04-14 15:51] VITALS: BMI 19.8
--- NOTE | 2019-04-24 06:08 | MRI_ITS ---
STUDY: MRI RIGHT ELBOW REASON FOR EXAM: Female, 59 years old. Elbow pain TECHNIQUE: Standardized fat and water weighted pulse sequences were obtained in all 3 orthogonal planes. COMPARISON: X-ray 05/03/2018 FINDINGS: Normal radio-capitellum articulation. Normal radial collateral ligamentous complex. Normal common extensor tendon. Normal ulnotrochlear articulation. Normal ulnar collateral ligamentous complex. There is tendinosis with tendon thickening of the common flexor tendon. The cubital tunnel is normal, with a normal ulnar nerve. Normal biceps tendon and distal insertion. Normal lacertus fibrosis. Normal brachialis musculotendinous insertion. Normal triceps tendon and teno-osseous insertion. Normal olecranon process. The visualized distal humerus, proximal radius, and ulna are normal. The visualized muscles of the distal arm and proximal forearm are normal. The soft tissue structures are unremarkable. MRI/Upper Ext Joint Only(Routine) IMPRESSION: Mild common flexor tendon tendinosis and peritendinitis is but no discrete tear (medial epicondylitis). Electronically Signed: Billy Dickerson MD at 8:54 EST Tel , Service support ,
--- NOTE | 2019-04-24 06:08 | MRI_ITS ---
STUDY: MRI LEFT ELBOW REASON FOR EXAM: Female, 59 years old. Elbow pain TECHNIQUE: Standardized fat and water weighted pulse sequences were obtained in all 3 orthogonal planes. COMPARISON: None. FINDINGS: Normal radio-capitellum articulation. Normal radial collateral ligamentous complex. There is tendinosis of the common extensor tendon origin with an intrasubstance split tear. Normal ulnotrochlear articulation. Normal ulnar collateral ligamentous complex. Normal common flexor tendon. The cubital tunnel is normal, with a normal ulnar nerve. Normal biceps tendon and distal insertion. Normal lacertus fibrosis. Normal brachialis musculotendinous insertion. Normal triceps tendon and teno-osseous insertion. Normal olecranon process. The visualized distal humerus, proximal radius, and ulna are normal. The visualized muscles of the distal arm and proximal forearm are normal. The soft tissue structures are unremarkable. MRI/Upper Ext Joint Only(Routine) IMPRESSION: Moderate common extensor tendon tendinosis and peritendinitis as with an interstitial tear (lateral epicondylitis) (. Electronically Signed: Billy Dickerson MD at 8:49 EST Tel , Service support ,
== END ==
PROVIDERS: Family Provider Family Medicine; PCP Family Medicine; Referring Provider Physician Assistant; Visit Provider Physician Assistant
DX: M77.01 Medial epicondylitis, right elbow (principal); M77.12 Lateral epicondylitis, left elbow
CPT/HCPCS: 73221

== ENCOUNTER 2019-05-28 13:20 | Day surgery (SDC) | payer OTHER, SELFPAY ==
[2019-05-16 08:30] VITALS: BMI 21.2
--- NOTE | 2019-05-16 08:54 | HP_ITS ---
I have re-examined the patient. There are no clinical changes since date of exam. Intake Intake Visit Reasons: Bilat elbow Is patient in pain?: Yes Allergies adhesive Allergy (Verified 05/16/19 08:30) Itching carvedilol [From Coreg] Allergy (Verified 05/16/19 08:30) FATIGUE hydromorphone HCl [From Dilaudid] Allergy (Verified 05/16/19 08:30) Itching PFSH Social History (Updated 05/20/19 @ 14:52 by Anamaria Vargas DO) Smoking Status: Never smoker alcohol intake: never substance use type: does not use HPI Bilat elbow: Surgical H&P: Yes Details: Parts of this documentation were recorded by a scribe, this documentation accurately reflects the service provided and the decisions made by me, Anamaria Vargas DO 05/16/19825. CASPER RUBI is a 59 year old F here today for bilateral elbow pain, right greater than left. Patient complains of pain over her medial right elbow and lateral left elbow. Patient states that her pain comes and goes. She notes that she has a strap that she wears during the summer. Patient notes that she had injections on 02/11/19 which were not helpful. She had an MRI previously which is here for review. Denies numbness, tingling or other associated symptoms. She denies any pain medications. Patient completed occupational therapy in the fall which was not helpful. ROS Musc Reports joint pain Skin/Breast Reports system reviewed and no additional complaints, except as docu Neuro Yes system reviewed and no additional complaints, except as docu Ortho Exam Right Elbow Skin/Wound: No Swelling ROM: Yes Flexion 0-140, Extension 0, Supination 0-90 and Pronation 0-80 Test: Yes TTP Medial Epicondyle, No Ulnar Nerve Subluxation Sensation: Radial: I, Ulnar: I, Median: I Motor: Elbow Extension: 5, Elbow Flexion: 5, EPL: 5, FDP-2: 5, 1st Dorsal Interosseous: 5 ELBOW: she does have mild fat atrophy at the injection site No rales rhonchi wheezing, no abdominal pain, no audible bruits Assessment & Plan Problems 1. Medial epicondylitis, right elbow M77.01 2. Lateral epicondylitis of left elbow M77.12 Plan Personally reviewed the MRIs and explained that she has right medial epicondylitis and left lateral epicondylitis, her treatment options are continued injections, OT or surgery for debridement. She has failed conservative treatments and reviewed the surgical procedure, post op restrictions and potential therapy post op. Reviewed the pre-operative plans with the patient. Risks and benefits of the procedure were fully explained, including but not limited to infection, neurovascular injury, continued pain, arthritis, stiffness, need for further surgery, re-injury, DVT, PE, general risks of anesthesia, and loss of limb or life. The patient understands all the risks and does wish to proceed with written consent. Follow up post op or sooner if pain, swelling, numbness or associated symptoms, or concerns develop. All questions answered. Patient in agreement of plan. Plan Detail Goals Decrease spasm Improve posture Improve ROM Barriers DDD Previous lumbar surgery (L4/L5) Coding Level of Care Code Off vis,est,level 4 Diagnoses Medial epicondylitis, right elbow M77.01 Lateral epicondylitis of left elbow M77.12 05/20/19 9936 <Electronically signed by Anamaria altamirano DO> Date _ Anamaria Vargas DO
[2019-05-28] VITALS (8 sets, daily range): BP systolic 111–148; BP diastolic 70–77; PULSE 97–114; RESP 14–102; TEMP 36.3–37.6; O2SAT 92–100; BMI 21.1
[2019-05-28] MEDS: Lactated Ringers 1,000 ML 100 ML IV ×2 (13:55→16:30)
--- NOTE | 2019-05-28 14:40 | TESH_PTH ---
PATIENT: CASPER RUBI LOC: [facility] [place] U#:[id number] AGE/SX: 59/F ROOM: RE05/28/[address]: Dr. Anamaria Vargas DO : 1960 BED: DIS: 05/28/2019 SPEC #: [id number] RECD: 05/29/19 12:25 STATUS: AURY DARRELL #: [id number] DESIRAE: 05/28/19 14:[address]: Anamaria Vargas DEPT: SURGICAL PATHOLOGY RECD BY: Artemio Sinha ENTERED: 05/29/19 14:01 SP TYPE: TENDON OTHR DR: Dr. Liz Hanson, DO Tissues: Tendon and tendon sheath, NOS Procedures: Surgery Specimen Level III HEADER OPERATION: Right medial epicondylitis debridement, flexor tendon repair PRE-OP DIAGNOSIS: Medial epicondylitis right elbow M77.01, Lateral epicondylitis left elbow M77.12 TISSUE SUBMITTED: FCR MICROSCOPIC DIAGNOSIS Flexor carpi radialis, biopsy: Fibrotendinous tissue with focal clustered microcalcification and minimal chronic inflammation. AM:ed 05/30/19 MICROSCOPIC DESCRIPTION Slides are reviewed. GROSS DESCRIPTION Received in fixative is one container labeled with the patient's name and designated FCR. The specimen consists of two pieces of august-white, firm, tendinous tissue measuring in aggregate 1 x 0.5 x 0.2 cm. The entire specimen is submitted in one cassette. / YOGESH:ed 05/29/19 TC:5 CPT: 64554
[2019-05-28] MEDS: Cefazolin 2 GM in 0.9% Normal Saline 100 ML IV (14:45)
[2019-05-28] MEDS: Bupivacaine Mpf 0.5% 30 ML VIAL (16:00)
[2019-05-28] MEDS: Triamcinolone Acetonide 40 MG/ML Vial (16:00)
--- NOTE | 2019-05-28 16:04 | DCINST_ITS ---
Discharge Diet: No Restrictions - sling/splint on at all times and clean/dry/intact, move hand/wrist as tolerated, non weight bearing left hand, call with concerns, follow up in 2 weeks Discharge Activity: May Not Drive May shower in (days): 1 Ice area for (Minutes): 20 - Every hour while awake. Weight Bearing Status: Weight bearing as tolerated Keep extremity elevated above heart level: Operative Extremity Call your doctor if your incision/area has: Continuous Slow Oozing, Sudden Increased Bleeding, Increased Pain/ Swelling, Increased Redness, Foul Smelling Discharge Call your doctor if you observe: Fever of 101 or Higher, Coldness, Increased Pain, Numbness or Tingling, Change in Color, Calf discomfort Allergies/Adverse Reactions: Allergies adhesive Allergy (Verified 05/28/19 13:42) Itching carvedilol [From Coreg] Allergy (Verified 05/28/19 13:42) FATIGUE hydromorphone HCl [From Dilaudid] Allergy (Verified 05/28/19 13:42) Itching Medications to take at Discharge Calcium Carbonate/Vitamin D3 [Calcium 600-Vit D3 400 Tablet] 1,200 mg PO BID 01/29/14 Multivitamins,Therapeutic [Multivitamin] 1 tab PO DAILY 01/29/14 Biotin 5 mg PO DAILY 05/11/17 magnesium 250 mg tablet 500 mg PO BID tab 09/20/17 venlafaxine 150 mg capsule,extended release 24 hr 150 mg PO DAILY cap 09/20/17 omega-3 fatty acids 1,000 mg capsule 1,000 mg PO BID 09/24/18 turmeric root extract 500 mg capsule 1,000 mg PO DAILY cap 09/24/18 Tamoxifen Citrate 20 mg PO DAILY 90 Days #90 tab 04/01/19 ropinirole 0.25 mg tablet 0.25 mg PO QHS #30 tab 05/14/19 Levocetirizine Dihydrochloride [Xyzal] 5 mg PO DAILY 05/27/19 Losartan Potassium [Cozaar] 25 mg PO DAILY 05/27/19 Olopatadine HCl [Patanol] 1 drp EACH EYE DAILY 05/27/19 Hydrocodone Bitart/Apap 5-325 [[place] 5MG-325MG] 1 - 2 tablet PO Q6H PRN PRN 5 Days #40 tablet 05/28/19 The following prescriptions were given: Hydrocodone Bitart/Apap 5-325 [[place] 5MG-325MG] 1 - 2 tablet PO Q6H PRN PRN 5 Days #40 tablet PRN Reason: Pain Transmission Status: Sent to [facility] Primary Care Physician: Liz Hanson DO [Primary Care Provider] - Test Results: Test results from this visit will be discussed in further detail at your follow- up appointment, if applicable. Please Follow Up With: Anamaria Vargas DO - [phone]
--- NOTE | 2019-05-28 16:05 | PCM.OPRPT ---
Report of Operation Date of Procedure: 05/28/19 Pre-Operative Diagnosis: right medial epicondylitis, left lateral epicondylitis Post-Operative Diagnosis: same Surgery/Procedure Performed:: right medial epicondylectomy/fcr debridement with fibertak arthrex repair, left lateral epicondyle injection showcase trimmer: Jonas Arroyo Type of Anesthesia:: General Anesthesiologist: Ric Herrera Drains: tt 45 mins Estimated Blood Loss (mL): none Fluids Replaced: 800cc Description of Procedure: Preop note Patient is a 59-year-old female with continued right medial epicondyle pain medial golfers elbow patient is an avid golfer. Patient failed conservative treatment including multiple injections MRI confirms medial epicondylitis. Patient has no ulnar nerve symptoms. Patient elected proceed with right medial epicondylectomy medial epicondyle debridement possible repair and left lateral epicondyle injections patient also has left lateral tennis elbow and has had injections in the past and is not ready for surgery of her left elbow at the same time. Risk benefits and alternatives were discussed the patient. Risk including but not limited to blood loss, blood clot, infection, neurovascular, failure procedure, loss of life and loss of limb. Patient is aware would like proceed with right medial epicondylectomy FCR debridement repair as indicated and left lateral tennis elbow injection. Operative note Patient seen and examined preoperative holding area. Right arm was marked. Patient brought to the operating room and placed supine on the operating table. Signed, anesthesia, antibiotics were administered. The right arm was prepped and draped in usual sterile fashion with a tourniquet around her upper arm. Marked out our incisions for our medial epicondyle debridement. The right arm is an elevated exsanguinated and tourniquet raised her pressure of 250 torr. Timeout was performed. We then used a 15 blade cut through the skin dissect down to nausea level of the fascia the fascia was then excised we then were able to dissect down to the level of the pronator teres FCR interval dissected this down and since grayish coloring of the FCR which was transected and were transecting the tendon she also had a pretty prominent medial epicondyle which was debrided with combination of a rongeur and a rasp. Please note that throughout the entire case we did make sure to protect her neurovascular structures. We then irrigated the site with copious muscle sterile saline. In standard technique we drilled the fiber tack Arthrex all suture implant. We then ran the suture up into securing the entire FCR flexor tendon wand back down to bone as some of it was elevated subperiosteally in order to debride our medial epicondyle further. Again this was tied down to bone. Incision was closed with interrupted 3-0 Vicryl subcuticular and subcutaneous 4-0 Monocryl running stitch. Sterile dressings and a splint 90 degrees was applied to the right upper extremity. We then moved to the lateral left lateral epicondyle and this was injected with a 1 cc bupivacaine half cc Kenalog mixture. Right arm tourniquet was deflated for total working time of 45 minutes. Patient taught procedure well no complication transferred recovery room in stable condition Postoperative note Patient postop neuro intact Discussed with family disc Call with increased pain numbness tingling or other issues arise The patient was not having ulnar nerve symptoms preoperatively with us again I discussed that we did would not move the arm ulnar nerve however patient does not experience postoperatively around returning back to sport to sports this only we we discussed. Pharmacy has prescription Call with increased pain numbness tingling or further issues arise Dragon disclaimer This note was generated with [employer] dictation software. It may contain incorrect words, spelling, and punctuation that were not noted in checking the note before signing. Grafts/Implants Used: arthrex all suture fibertak
[2019-05-28] MEDS: Mupirocin Ointment 22gm Tube 1 APPLIC (16:06)
[2019-05-28] MEDS: HYDROcodone Bitartrate/Apap 5/325 Tablet PO (17:50)
== END 2019-05-28 18:32 | disposition home or self-care (01) ==
LOC: SDC 13:24 → AC 13:25
PROVIDERS: Family Provider Family Medicine; PCP Family Medicine; Referring Provider Orthopaedic Surgery; Visit Provider Orthopaedic Surgery
PROC: (CPT 24357; principal; 2019-05-28 14:25)
DX: M77.01 Medial epicondylitis, right elbow (principal); M77.12 Lateral epicondylitis, left elbow; G25.81 Restless legs syndrome; F32.9 Major depressive disorder, single episode, unspecified; F41.9 Anxiety disorder, unspecified; Z78.0 Asymptomatic menopausal state; Z88.5 Allergy status to narcotic agent; Z85.3 Personal history of malignant neoplasm of breast
CPT/HCPCS: 20550; 24359; 88304; C1713; J7120; J2405

== ENCOUNTER 2019-09-18 12:51 | Outpatient (RCR) | payer OTHER, SELFPAY ==
[2019-09-16 13:06] VITALS: BMI 21.1
== END 2019-09-18 19:00 | disposition home or self-care (01) ==
LOC: OT 12:51
PROVIDERS: PCP Family Medicine; Referring Provider Orthopaedic Surgery; Visit Provider Orthopaedic Surgery
DX: M77.12 Lateral epicondylitis, left elbow (principal)

== ENCOUNTER 2019-10-13 12:00 | Outpatient (RCR) | payer OTHER, SELFPAY ==
[2019-06-10 10:40] VITALS: BMI 21.1
--- NOTE | 2019-06-18 13:13 | HP.OTEVAL ---
Patient's Visit Information CASPER RUBI is a 59 year old F, referred to Occupational Therapy by Dr. Anamaria Vargas DO, with a diagnosis of right Medial epicondylectomy. Date of Evaluation: 06/16/19 Occupational Therapist: Zuly Levi, OTJavy/Eliza, CHT - Subjective Subjective: this 59 year old female was seen for OT eval with dx of right medial epicondylectomy with with debridement with repair. Pt has been seen by this therapist is the past with right elbow pain, failed conservative tx. and opted for sx. Today pt reports she has min. pain and she feels good ROM. pt has concerns of returning to he PLOF with ADLs and IADLS. - ADLs Dressing: Pants, Socks Kitchen: Open jars, Open bottle caps, Lift saucepan, Load/unload auto damage appraiser, Place dish in microwave Yard: [place], Use pruners - Pain right UE 1 Pain Intensity Range: 0, 4 - ROM Elbow: right -5/145 left +10/150 Forearm: right WNL Wrist: right 50/60 left 60/65 ROM Comments: pt demo with left UE hyper-extension of elbow - Strength Digital Circuit Designer: right NT left 55# Lateral Pinch: right NT left 8# Tripod Pinch: right NT left 7# Strength Comments: right UE will be tested at later date - Sensation Sensation Comments: denies - Rehabilitation General Assessment: Pt s/p 2 weeks right medial epicondylectomy with with debridement with repair.Pt demo with newly healing structures, limited ROM and limitations with strength decreasing pts ind. with ADLS and IADLS. Pt would benefit from skilled OT services 2x week for 6 weeks to return pt to PLOF. Today therapsit ed. pt on ROM of elbow, forearm and wrist, edema control, scar mtg. Therapist also ed.pt that PRE will not initiate until pt is 6-8 weeks s/p. pt demo understanding and agree to POC. Rehabilitation Potential: Good - Anticipated Interventions Anticipated Interventions: A/AAROM/PROM, Strengthening, Scar Care, Desensitization, Modalities, Orthoses, Joint Protection/Energy Conservation, Ergonomic Education - Visit Plan Frequency: 1-2x /Week Duration: 6 Weeks TEXT: Thank you for the opportunity to evaluate your patient. For Medicare and Medicare HMO plans, please review the plan of care and approve it. It will need to be FAXED BACK to us at [phone] for Medicare purposes. Please let me know if there are questions or concerns regarding this plan of care. Physician Signature: Date:
--- NOTE | 2019-06-18 13:22 | HP.OTEVAL_ITS ---
Patient's Visit Information CASPER RUBI is a 59 year old F, referred to Occupational Therapy by Dr. Anamaria Vargas DO, with a diagnosis of right Medial epicondylectomy. Date of Evaluation: 06/16/19 Occupational Therapist: Zuly Levi, OTR/Eliza, CHT - Subjective Subjective: this 59 year old female was seen for OT eval with dx of right medial epicondylectomy with with debridement with repair. Pt has been seen by this therapist is the past with right elbow pain, failed conservative tx. and opted for sx. Today pt reports she has min. pain and she feels good ROM. pt has concerns of returning to he PLOF with ADLs and IADLS. - ADLs Dressing: Pants, Socks Kitchen: Open jars, Open bottle caps, Lift saucepan, Load/unload landscape architect and planner, Place dish in microwave Yard: [place], Use pruners - Pain right UE 1 Pain Intensity Range: 0, 4 - ROM Elbow: right -5/145 left +10/150 Forearm: right WNL Wrist: right 50/60 left 60/65 ROM Comments: pt demo with left UE hyper-extension of elbow - Strength Residential Mortgage Underwriter: right NT left 55# Lateral Pinch: right NT left 8# Tripod Pinch: right NT left 7# Strength Comments: right UE will be tested at later date - Sensation Sensation Comments: denies - Goals Goal:: pt will demo a right color consultant strength of 35# or greater to return pt to PLOF with ADLs and IADls by D/C. pt will demo a increase in right lateral and tripod pinch to 6# to return to PLOF with ADLs by d/c Goal:: pt will demo full right elbow ROM 0/145 to return to PLOF with IADls and ADLs Goal:: pt will report pain no greater than 1/10 with use of right UE with ADLs and IADLs by d/c Goal:: pt will demo understanding of scar mtg,/desensitization by end of to decrease risk of scar adhesions. Goal:: pt will demo understanding of lifting ergo, to prevent joint stress by d/c - Rehabilitation General Assessment: Pt s/p 2 weeks right medial epicondylectomy with with debridement with repair.Pt demo with newly healing structures, limited ROM and limitations with strength decreasing pts ind. with ADLS and IADLS. Pt would benefit from skilled OT services 2x week for 6 weeks to return pt to PLOF. Today therapsit ed. pt on ROM of elbow, forearm and wrist, edema control, scar mtg. Therapist also ed.pt that PRE will not initiate until pt is 6-8 weeks s/p. pt demo understanding and agree to POC. Rehabilitation Potential: Good - Anticipated Interventions Anticipated Interventions: A/AAROM/PROM, Strengthening, Scar Care, Desensitization, Modalities, Orthoses, Joint Protection/Energy Conservation, Ergonomic Education - Visit Plan Frequency: 1-2x /Week Duration: 6 Weeks TEXT: Thank you for the opportunity to evaluate your patient. For Medicare and Medicare HMO plans, please review the plan of care and approve it. It will need to be FAXED BACK to us at [phone] for Medicare purposes. Please let me know if there are questions or concerns regarding this plan of care. Physician Signature: Date:
[2019-09-16 13:06] VITALS: BMI 21.1
--- NOTE | 2019-09-19 06:51 | HP.OTREVAL ---
Dr. Anamaria Vargas, DO, It has been my pleasure to treat CASPER RUBI over the last 6 visits for right Medial epicondylectomy. Please see the progress note below for an update on the occupational therapy plan of care! Subjective: pt arrives following new dr. merrill due to covid 19 has not been seen in about 8 weeks, pt states she has struggled with pain following her sx. pt feels the cortisone shot on her left lateral elbow has worn off- and after golfing about a week a go her right medial side of her elbow has become painful. Pt states she struggles with pain so much she has ad. her way of performing her ADLS and IADLS at this time. Pt states she is getting a tingling/buring sensation in her LF and the dorsal side of her right IF- Objective/Function: pt demo right elbow ROM WNL with hyper ext of bilateral elbow. right forearm supination/pron WNL. right lateral pinch 8#. left lateral pinch 6#. right tripod pinch 6#. left tripod pinch 4#. Right leave coordinator strength 40#. left leave coordinator strength 40#. right arm elbow straight 30#. left arm elbow straight 5# (pain with this grasp). pt demo with a decrease in UB MMT at 4/5 shoulders-Biceps/triceps 4/5 Plan Frequency: 2-3x /Week Duration: 6 Weeks Plan: Pt to initiate ice 2x a day to bilateral elbow for 10 min- use of right wrist brace (therapist adj) to limit wrist flex to decrease pain on medial elbow-. use of countor fource brace to left elbow-(therapist made adj. to decrease pull on extensor components) will initiate left forearm stretches, adding nerve glides for radial nerve on BUE, and initiating shoulder isometric, wrist isometric ex. as pt tolerates- wrist/elbow ergonomics with ADLs and IADLS. Goals - Goals Patient Goals: Regain Mobility, Regain Strength, Use Hand/Wrist/Arm Normally Again Goal:: pt will demo a right leave coordinator strength of 55# or greater to return pt to PLOF with ADLs and IADls by D/C. pt will demo a increase in right lateral and tripod pinch to 10# to return to PLOF with ADLs by d/c. PT will demo a increase in BUE MMT to 4+/5 grossly throughout to increase pts ind. with IADLs and ADLS by d/c. Goal:: pt will demo full right elbow ROM 0/145 to return to PLOF with IADls and ADLs Goal:: pt will report pain no greater than 1/10 with use of right UE with ADLs and IADLs by d/c Goal:: pt will demo understanding of scar mtg,/desensitization by end of to decrease risk of scar adhesions. Goal:: pt will demo understanding of lifting ergo, to prevent joint stress by d/c Anticipated Interventions Anticipated Interventions: A/AAROM/PROM, Strengthening, Scar Care, Desensitization, Modalities, Orthoses, Joint Protection/Energy Conservation, Ergonomic Education Please do not hesitate to contact me at [phone] by phone or if you have questions or concerns regarding this new plan of care! Sincerely, Zuly Levi, OTR/L, CHT
== END 2019-10-13 19:00 | disposition home or self-care (01) ==
LOC: OT 12:00
PROVIDERS: PCP Family Medicine; Referring Provider Orthopaedic Surgery; Visit Provider Orthopaedic Surgery
DX: Z98.890 Other specified postprocedural states (principal)
CPT/HCPCS: 97035; 97110; 97140; 97166; 97530

== ENCOUNTER → 2019-10-13 | Outpatient (CLI) | payer OTHER, SELFPAY ==
[2019-10-06 10:07] VITALS: BMI 21.1
[2019-10-13 15:33] LABS: Cholesterol 198 mg/dL (200); High Density Lipoprotein 91 mg/dL; T4 Free Direct 0.95 ng/dL (0.76-1.46); Thyroid Stim Hormone (TSH) 2.65 uIU/mL (0.358-3.74); Triglycerides 73 mg/dL; Very Low Density Lipoprotein 15 mg/dL (5-40)
== END | disposition home or self-care (01) ==
LOC: BFHLAB 10:34
PROVIDERS: PCP Family Medicine; Visit Provider Family Medicine
DX: Z00.00 Encounter for general adult medical examination without abnormal findings (principal); E78.5 Hyperlipidemia, unspecified; R53.83 Other fatigue
CPT/HCPCS: 36415; 80061; 84439; 84443

== ENCOUNTER → 2019-10-27 14:03 | Outpatient (CLI) | payer OTHER, SELFPAY ==
[2019-10-06 10:07] VITALS: BMI 21.1
[2019-10-14 08:56] VITALS: BMI 21.1
[2019-10-27 16:06] LABS: Vitamin D,25 Hydroxy 64.3 ng/mL
[2019-10-29 06:18] LABS: SAR-COV-2 IGG ANTIBODY Negative (Negative); SAR-COV-2 IGM ANTIBODY Negative (Negative)
== END ==
PROVIDERS: PCP Family Medicine; Visit Provider Family Medicine
DX: Z00.00 Encounter for general adult medical examination without abnormal findings (principal); U07.1 COVID-19; R53.83 Other fatigue; J98.8 Other specified respiratory disorders
CPT/HCPCS: 82306; 86769; G2023

== ENCOUNTER → 2020-01-09 14:05 | Outpatient (CLI) | payer OTHER, SELFPAY ==
[2020-01-07 10:24] VITALS: BMI 20.7
--- NOTE | 2020-01-09 14:08 | ECHOD_ITS ---
Reason For Study: Fatigue, H/O LV dysfunction Procedure This was a 2D Doppler, Color Flow transthoracic echocardiogram. Myocardial strain analysis was performed in this exam to aid in the assessment of cardiac function. Exam performed in department. Left Ventricle Normal LV size. Left ventricular systolic function is normal. The estimated ejection fraction is 65 %. Stage 1 diastolic dysfunction. No regional wall motion abnormalities noted. Right Ventricle Normal RV size. Normal systolic function. Atria Normal left atrium. Normal right atrium. Mitral Valve Normal mitral valve. Trivial eccentric mitral valve insufficiency. Tricuspid Valve Normal tricuspid valve. Mild (1+) tricuspid valve insufficiency. Aortic Valve Normal aortic valve. Trisinus/trileaflet aortic valve. Pulmonic Valve Normal pulmonic valve. Great Vessels Normal aortic root. The pulmonary artery is normal size. Normal inferior vena cava. Pericardium/Pleural No pericardial effusion. MMode/2D Measurements & Calculations LVIDd: 4.1 cm IVSd: 0.90 cm Ao root diam: 3.2 cm LVIDs: 2.9 cm LVPWd: 0.90 cm LA dimension: 3.1 cm RVDd: 2.9 cm FS: 27.9 % LAV(MOD-sp4): 35.9 ml LA A4 area: 13.0 cm2 RA A4 area: 11.2 cm2 Time Measurements MV dec time: 0.19 sec Doppler Measurements & Calculations MV E max silverio: 56.0 cm/sec Lat Peak E' Silverio: 10.5 cm/sec MV V2 max: 86.7 cm/sec MV A max silverio: 86.4 cm/sec E/E' lat: 5.3 MV max P.0 mmHg MV E/A: 0.65 MV V2 mean: 45.7 cm/sec MV mean P.0 mmHg MV V2 VTI: 13.8 cm MV P1/2t max silverio: 56.3 cm/sec Ao V2 max: 107.0 cm/sec LV V1 max: 97.1 cm/sec MV P1/2t: 64.3 msec Ao max P.6 mmHg LV V1 max P.8 mmHg MV dec slope: 256.2 cm/sec2 MVA(P1/2t): 3.4 cm2 PA V2 max: 81.9 cm/sec TR max silverio: 169.9 cm/sec TR max P.6 mmHg Interpretation Summary Normal LV size. Left ventricular systolic function is normal. The estimated ejection fraction is 65 %. Stage 1 diastolic dysfunction. Mild (1+) tricuspid valve insufficiency. The global longitudinal strain is normal. The global longitudinal strain = -20.1 % (normal). Ordering Physician: Whitney Oliva Referring Physician: Liz Hanson Performed By: Yordan Kinney RCS
== END ==
PROVIDERS: PCP Family Medicine; Referring Provider Nurse Practitioner Family; Visit Provider Nurse Practitioner Family
DX: I51.9 Heart disease, unspecified (principal); I95.9 Hypotension, unspecified; R53.83 Other fatigue
CPT/HCPCS: 93306

== ENCOUNTER → 2020-01-14 12:20 | Outpatient (CLI) | payer OTHER, SELFPAY ==
[2020-01-14 08:13] VITALS: BMI 20.3
[2020-01-14 13:25] LABS: Absolute Lymphocyte Count 0.93 X10^3/uL (0.83-4.51); Absolute Neutrophil Count 3.4 X10^3/uL (2.0-7.7); Basophil# 0.06 X10^3/uL; Basophil% 1.2 % (0-1); Eosinophil# 0.07 X10^3/uL; Eosinophils% 1.4 % (0-5); Hematocrit 34.8 % (37-47); Hemoglobin 11.3 g/dL (12.0-15.0); Lymphocyte # 0.93 X10^3/ul (4.0); Lymphocyte % 18.8 % (19-41); Mean Corp Hgb Conc 32.5 g/dL (32-36); Mean Corpuscular Hgb 31.6 pg (27.0-32.0); Mean Corpuscular Volume 97.2 fL (81-99); Mean Platelet Vol. 9.8 fl (6.2-12.0); Monocyte# 0.51 X10^3/uL; Monocyte% 10.3 % (0-10); NRBC Flagged by Analyzer 0 % (0-5); Neutrophil # 3.36 X10^3/uL (2.7-7.7); Neutrophil % 68.1 % (47-70); Platelet Count 312 K/mm3 (150-450); RBC Distribution Width CV 12.9 % (11.6-14.6); RBC Distribution Width SD 46.1 fl (35.1-43.9); Red Blood Count 3.58 M/mm3 (4.2-5.4); White Blood Count 4.9 K/mm3 (4.4-11.0)
[2020-01-14 13:59] LABS: BNP,B-Type NATRIURETIC PEPTIDE 29.3 pg/mL (0-100)
[2020-01-14 14:01] LABS: Vitamin B12 674 pg/mL (211-911)
[2020-01-14 14:08] LABS: AST(SGOT) 26 U/L (15-37); Alanine Aminotransfer ALT/SGPT 26 U/L (13-56); Albumin, Serum 3.6 g/dL (3.2-5.0); Alkaline Phosphatase 72 U/L (45-117); Anion Gap 5 (5-15); BUN 22 mg/dL (7-18); BUN/Creat Ratio 28.7 RATIO (10-20); Calcium,Total 9.1 mg/dL (8.5-10.1); Chloride 104 mmol/L (98-107); Creatinine, Serum 0.77 mg/dL (0.55-1.02); EST Glomerular Filtration Rate 82 mL/min (>60); Est Glom Filt Rate - Afr Amer 99 mL/min (>60); Globulin 3.6 g/dL (2.2-4.2); Glucose 79 mg/dL (74-106); Potassium 3.6 mmol/L (3.5-5.1); Protein, Total 7.2 g/dL (6.4-8.2); Sodium Level 138 mmol/L (136-145); Thyroid Stim Hormone (TSH) 1.02 uIU/mL (0.358-3.74)
[2020-01-14 14:13] LABS: LDH 188 U/L (84-246)
[2020-01-16 15:23] LABS: Vitamin D 1,25-Dihydroxy 39.5 pg/mL (19.9-79.3)
== END ==
PROVIDERS: Nurse Practitioner Family; PCP Family Medicine; Referring Provider Internal Medicine Cardiovascular Disease; Visit Provider Internal Medicine Cardiovascular Disease
DX: R06.00 Dyspnea, unspecified (principal); D64.9 Anemia, unspecified; R53.83 Other fatigue; Z85.3 Personal history of malignant neoplasm of breast
CPT/HCPCS: 36415; 80053; 82607; 82652; 82746; 83615; 83880; 84443; 85025

== ENCOUNTER → 2020-01-16 13:33 | Outpatient (CLI) | payer OTHER, SELFPAY ==
[2020-01-14 08:13] VITALS: BMI 20.3
--- NOTE | 2020-01-16 13:33 | STE_ITS ---
Reason For Study: shortness of breath Stress Results Protocol: Huber Protocol Maximum Predicted HR: 162 bpm Target HR: 138 bpm % Maximum Predicted HR: 100 % DurationHeart Rate Stage (mm:ss) (bpm) BP Comment baseline 83 122/84no chest pain stage 1 3:00 118 112/60no chest pain stage 2 3:00 137 118/62no chest pain stage 3 3:00 153 122/60no chest pain, mild shortness of breath stage 4 1:00 162 / no chest pain. moderate shortness of breath recovery 107 136/78shortness of breath resolved, no chest pain Stress Duration: 10:00 mm:ss Maximum Stress HR: 162 bpm Baseline Echocardiogram Findings Stress Echo Wall motion Data Resting WM Intermediate WM Stress WM Interpretation Summary Exercise stress echo. 59-year-old lady with a history of shortness of breath. Stress protocol: Resting EKG demonstrates normal sinus rhythm with a rate of 83 bpm normal intervals are noted resting blood pressure is 122/84 mmHg. The patient exercised according to the regular Huber protocol for a total duration of 10 minutes. The maximum heart rate attained was 162 bpm which was 100% of max impacted heart rate the maximum workload was 13.4 metabolic equivalents. The patient maintained sinus rhythm throughout the recording. At rest there were no ST changes noted to suggest ischemia at peak exercise there was approximately 1.2 to 1.[address] changes noted which did not meet the criteria for ischemia. No clinical angina was noted the tach test was terminated due to the target heart rate being achieved. The peak blood pressure was 136/78 mmHg with a rate-pressure product of 18,600. Stress echocardiogram. The resting echocardiogram demonstrated an ejection fraction of approximately 60 to 65%. At peak exercise there was thickening of all fitzpatrick and reduction in low ventricular cavity size with peak ejection fraction of 70%. No wall motion abnormalities were noted to suggest ischemia. Conclusion: Normal exercise stress echo with no evidence of ischemia at a high workload. Excellent functional aerobic capacity. No clinical angina No arrhythmias noted. Ordering Physician: Florentino Vargas Referring Physician: Florentino Vargas Performed By: Summer Comer RDCS
== END ==
PROVIDERS: PCP Family Medicine; Referring Provider Internal Medicine Cardiovascular Disease; Visit Provider Internal Medicine Cardiovascular Disease
DX: R06.00 Dyspnea, unspecified (principal)
CPT/HCPCS: 93017; 93350

== ENCOUNTER → 2020-07-20 12:39 | Outpatient (CLI) | payer OTHER, SELFPAY ==
[2020-05-03 15:03] VITALS: BMI 21.0
--- NOTE | 2020-07-20 12:42 | MRI_ITS ---
STUDY: MRI RIGHT ELBOW REASON FOR EXAM: Ulnar sided right elbow pain, prior surgery in May 2019. TECHNIQUE: Standardized fat and water weighted pulse sequences were obtained in all 3 orthogonal planes. COMPARISON: Radiographs 07/01/2020, MRI images 04/24/2019. FINDINGS: Normal radio-capitellum articulation. Normal radial collateral ligamentous complex. Normal common extensor tendon. Normal ulnotrochlear articulation. Normal ulnar collateral ligamentous complex. There are postoperative changes of the common flexor tendon without focal discontinuity of the tendon or peritendinitis (inversion recovery coronal image 13). The cubital tunnel is normal, with a normal ulnar nerve. Normal biceps tendon and distal insertion. Normal lacertus fibrosis. Normal brachialis musculotendinous insertion. Normal triceps tendon and teno-osseous insertion. Normal olecranon process. There is an anchor in the medial epicondyle. The visualized muscles of the distal arm and proximal forearm are normal. The soft tissue structures are unremarkable. MRI/Upper Ext Joint Only(Routine) IMPRESSION: Postoperative changes of the common flexor tendon without demonstrated tendon tear or peritendinitis. Electronically Signed: Angelo Marshall MD at 14:06 EDT Tel , Service support ,
== END ==
PROVIDERS: PCP Family Medicine; Referring Provider Orthopaedic Surgery; Visit Provider Orthopaedic Surgery
DX: M25.521 Pain in right elbow (principal); Z98.890 Other specified postprocedural states
CPT/HCPCS: 73221

== ENCOUNTER 2020-12-20 05:31 | Day surgery (SDC) | payer OTHER, SELFPAY ==
[2020-12-03 15:10] VITALS: BMI 20.1
[2020-12-20 05:50] VITALS: BP 129/98; PULSE 84; RESP 16; TEMP 36.3; O2SAT 100
--- NOTE | 2020-12-20 06:04 | PCM.HP.BLA ---
History and Physical Date of Admission: 12/20/20 Intake Visit Reasons: C-SCOPE Chief Complaint: blood in stool Stepdown Nurse Required: No Is patient in pain?: No Allergies adhesive Allergy (Verified 12/03/20 15:09) Itching carvedilol [From Coreg] Allergy (Verified 12/03/20 15:09) FATIGUE hydromorphone HCl [From Dilaudid] Allergy (Verified 12/03/20 15:09) Itching Medications calcium carbonate-vitamin D3 1,200 mg PO BID 01/29/14 [History Confirmed 12/03/20] multivitamin with folic acid 1 tab PO DAILY 01/29/14 [History Confirmed 12/03/20] biotin 5 mg PO DAILY 05/11/17 [History Confirmed 12/03/20] magnesium 250 mg tablet 500 mg PO BID tab 09/20/17 [History Confirmed 12/03/20] omega-3 fatty acids 1,000 mg capsule 1,000 mg PO BID 09/24/18 [History Confirmed 12/03/20] turmeric root extract 500 mg capsule 1,000 mg PO DAILY cap 09/24/18 [History Confirmed 12/03/20] olopatadine 1 drp EACH EYE DAILY 05/27/19 [History Confirmed 12/03/20] mecobalamin (vitamin B12) 1,000 mcg PO DAILY 11/19/19 [History Confirmed 12/03/20] benzonatate 100 mg capsule 100 mg PO BID-TID PRN #180 cap 01/20/20 [Rx Confirmed 12/03/20] cetirizine 10 mg capsule 10 mg PO DAILY PRN 07/22/20 [History Confirmed 12/03/20] pramipexole 0.125 mg tablet 0.125 mg PO DAILY tab 07/22/20 [History Confirmed 12/03/20] venlafaxine 150 mg capsule,extended release 24 hr 150 mg PO DAILY cap 07/22/20 [History Confirmed 12/03/20] ropinirole 0.25 mg tablet 0.25 mg PO QHS 10/25/20 [History Confirmed 12/03/20] temazepam 7.5 mg capsule 7.5 mg PO QHS 10/25/20 [History Confirmed 12/03/20] PFSH Medical History Cancer phobia Cardiomyopathy in diseases classified elsewhere Cough productive of purulent sputum Daytime hypersomnia DDD (degenerative disc disease), lumbar Degenerative disc disease, cervical Dermatitis Disproportion of reconstructed breast Encounter for adjustment or management of vascular access device History of left breast cancer Hypersomnia, unspecified Late effect of radiation Left ventricular systolic dysfunction Lymphedema Major depressive disorder Neck pain PFO (patent foramen ovale) Post-nasal drip RLS (restless legs syndrome) Segmental and somatic dysfunction of cervical region Segmental and somatic dysfunction of lumbar region Segmental and somatic dysfunction of pelvic region Segmental and somatic dysfunction of thoracic region Sinusitis, acute SOB (shortness of breath) on exertion Verrucae vulgaris Surgical History H/O hernia repair History of back surgery History of bilateral mastectomy History of eye surgery History of hysterectomy History of left oophorectomy History of modified radical mastectomy of left breast History of prophylactic mastectomy of right breast History of tonsillectomy S/P repair of anterior cruciate ligament tear duct tube placement Family History Grandfather Colon cancer Mother Hypertension Sister Cancer Social History Smoking Status: Never smoker alcohol intake: never substance use type: does not use HPI HPI HPI: CASPER RUBI, is a 60 F who presents to the office today for consultation regarding acute bright red blood per rectum. August 26, 2016 a colonoscopy and upper endoscopy for her. At that point I did not determine the source of bleeding. Her bowel prep was felt to be adequate but there was still liquidy and fragments of stool partially obscuring view. On this occasion she complains of a very painless bright red rectal bleeding. As noted on the tissue people around stool and in the commode. It was quite voluminous. It occurred consistent and 3 occurred. She does not have a family history of colon cancer which she is aware of. Not any weight loss or abdominal pain. She has had slight change in caliber of her stool. She has a previous history of breast cancer ROS General General: Yes weight change, fatigue and breast cancer; No appetite, colon cancer or weakness HEENT HEENT: No difficulty swallowing, eye injury, eye surgery, swollen glands or hoarseness Endo Endocrine: No thyroid disease, diabetes mellitus, thyroid cancer, Hair loss, heat intolerance or cold intolerance Skin Skin: No rash or changing moles Breast Breast: No left breast lump, right breast lump, nipple discharge, breast pain, abnormal mammogram, abnormal US or breast enlargement Musc Musculoskeletal: Yes back problems and arthritis; No rheumatoid arthritis, gout or joint pain Cardio Cardiovascular: No murmur, pacemaker, heart disease, atrial fibrillation, high blood pressure, heart attack, heart stent, palpitations, shortness of breat with exertion or chest pain Psych Psychiatric: Yes depression and anxiety; No hearing voices Resp Respiratory: No shortness of breath, No sleep apnea, No cough, No COPD, No asthma, No emphysema and No wheezing Gastro Gastrointestinal: No abdominal pain, No nausea or vomiting, No diarrhea, No constipation, No blood in stool, No acid reflux, Yes hemorrhoids, No ulcers, No gallbladder problem and No black,tarry stools Marvin Hematologic: No blood thinners, No blood disorders, No bleeding, No anemia and No blood clots Neuro Neurologic: No system reviewed and no additional complaints, except as documented, No as per HPI, No abnormal gait, No abnormal hearing, No abnormal movements, No abnormal speech, No behavioral changes, No burning sensations, No confusion, No convulsions, No disequilibrium, No dizziness, No localized weakness, No frequent falls, No headache(s), No lack of coordination, No loss of vision, No memory loss, No numbness, No other visual disturbances, No radicular pain, No restless legs, No sensory deficit, No syncope, No tingling, No tremor(s), No weakness and No other Exam Const General: cooperative, healthy appearing, comfortable and no acute distress Nutritional Appearance: average body habitus [facility] Head: normal to inspection Eyes General: appearance normal, both eyes and all related structures Neck Neck: normal visual inspection Resp Effort & Inspection: normal respiratory effort Auscultation: clear to auscultation bilaterally Cardio Rate: regular rate Rhythm: regular rhythm GI Palpation: soft and no hepatosplenomegaly Auscultation: normal bowel sounds Musc Cervical Spine: normal cervical lordosis Neuro General: patient alert and patient awake Extrem General: no calf tenderness Psych Appearance: grossly normal COVID (Procedure Consent) Procedure Criteria Procedure Criteria: Yes Elective The surgeon/proceduralist and patient have discussed in detail the risk of exposure to and/or potential harm posed by the COVID-19 virus with having a surgery/procedure at this time versus the risk of delaying the surgery/procedure. It is not possible to know either the risk of delaying the surgery or procedure or chance of getting an infection with perfect accuracy, but a joint decision was made between the patient and the surgeon/proceduralist to proceed at this time with the scheduled surgery/procedure as indicated on the consent form. Assessment and Plan Assessment and Plan (1) Rectal bleeding: Status: Acute Plan Details Additional Comments: Acute rectal bleeding not on anticoagulation with a personal history of breast cancer. I recommended the patient colonoscopy possible biopsy or polypectomy as indicated. I do recommend 2-day bowel prep to a more complete evacuation. She is aware of the technique, benefit, risk, alternatives. We will utilize monitored anesthesia care with. Very careful inspection for source of bright red bleeding will be pursued. She has had an opportunity to ask questions answered. We will schedule her procedure at her discretion. We did have a brief discussion regarding COVID-19 vaccination. The patient has not been vaccinated. We discussed benefit and risk. Copy: Dr. Liz Wheeler M.D., F.A.C.S. Goals & Barriers: Goals Decrease spasm Improve posture Improve ROM Barriers DDD Previous lumbar surgery (L4/L5) Coding Level of Care Code Off vis,est,level 2 I have re-examined the patient. There are no clinical changes since date of exam. Elder Wheeler M.D., F.A.C.S.
[2020-12-20] MEDS: Lactated Ringers 1,000 ML 100 ML IV (06:11)
[2020-12-20 06:55] VITALS: BP 100/73; BP 129/98; PULSE 79; RESP 16; TEMP 36.9; O2SAT 100
[2020-12-20 07:00] VITALS: BP 107/66; BP 129/98; PULSE 78; RESP 16; O2SAT 100
[2020-12-20 07:05] VITALS: BP 116/71; BP 129/98; PULSE 78; RESP 16; O2SAT 100
[2020-12-20 07:10] VITALS: BP 112/70; BP 129/98; PULSE 76; RESP 16; TEMP 36.9; O2SAT 100
[2020-12-20 07:39] VITALS: BP 129/98
--- NOTE | 2020-12-20 09:55 | OP.COLON_ITS ---
Patient Name: Yenifer Barrios Procedure Date: 12/20/2020 6:15 AM Date of : 1960 Age: 60 Procedure: Colonoscopy Indications: Rectal bleeding Providers: Elder Wheeler MD Referring MD: Elder Wheeler MD Medicines: See the Anesthesia note for documentation of the administered medications Patient Profile: Last Colonoscopy: 2016. Complications: No immediate complications. Procedure: Pre-Anesthesia Assessment: - Prior to the procedure, a History and Physical was performed, and patient medications and allergies were reviewed. The patient's tolerance of previous anesthesia was also reviewed. The risks and benefits of the procedure and the sedation options and risks were discussed with the patient. All questions were answered, and informed consent was obtained. Prior Anticoagulants: The patient has taken no previous anticoagulant or antiplatelet agents. ASA Grade Assessment: I - A normal, healthy patient. After reviewing the risks and benefits, the patient was deemed in satisfactory condition to undergo the procedure. After I obtained informed consent, the scope was passed under direct vision. Throughout the procedure, the patient's blood pressure, pulse, and oxygen saturations were monitored continuously. The colonoscope was introduced through the anus and advanced to the cecum, identified by appendiceal orifice and ileocecal valve. The colonoscopy was performed without difficulty. The ileocecal valve and the appendiceal orifice were photographed. Scope In: 6:35:38 AM Scope Withdrawal Time 0 hours 7 minutes 48 seconds Scope Out: 6:51:00 AM Total Procedure Duration Time 0 hours 15 minutes 22 seconds Findings: The digital rectal exam findings include non-thrombosed external hemorrhoids, non-thrombosed internal hemorrhoids and internal hemorrhoids that prolapse with straining, but spontaneously regress to the resting position (Grade II). Pertinent negatives include normal sphincter tone. The colon (entire examined portion) was moderately tortuous. Advancing the scope required using manual pressure. The exam was otherwise without abnormality. Impression: - Non-thrombosed external hemorrhoids, non-thrombosed internal hemorrhoids and internal hemorrhoids that prolapse with straining, but spontaneously regress to the resting position (Grade II) found on digital rectal exam. - Tortuous colon. - The examination was otherwise normal. - No specimens collected. Recommendation: - Discharge patient to home. - Resume previous diet. - Continue present medications. - Use fiber, for example Citrucel, Fibercon, Konsyl or Metamucil. - Repeat colonoscopy in 10 years for screening purposes. Procedure Code(s): --- Professional --- 85109, Colonoscopy, flexible; diagnostic, including collection of specimen(s) by brushing or washing, when performed (separate procedure) Diagnosis Code(s): --- Professional --- K64.1, Second degree hemorrhoids K64.4, Residual hemorrhoidal skin tags K62.5, Hemorrhage of anus and rectum Q43.8, Other specified congenital malformations of intestine CPT copyright 2017 [employer] [place] [employer]. All rights reserved. The codes documented in this report are preliminary and upon numerical control tool programmer review may be revised to meet current compliance requirements. Elder Wheeler MD 12/20/2020 6:56:11 AM This report has been signed electronically. Number of Addenda: 0 Note Initiated On: 12/20/2020 6:15 AM
--- NOTE | 2020-12-20 09:55 | OP.CCLET_ITS ---
12/20/2020 Liz Hanson [address] [place] [address] Re : Colonoscopy procedure for Yenifer Barrios Dear Dr. Hanson This procedure was performed on Sunday, December 20, 2020. My impressions and recommendations are as follows: Impressions : - Non-thrombosed external hemorrhoids, non-thrombosed internal hemorrhoids and internal hemorrhoids that prolapse with straining, but spontaneously regress to the resting position (Grade II) found on digital rectal exam. - Tortuous colon. - The examination was otherwise normal. - No specimens collected. Recommendations : - Discharge patient to home. - Resume previous diet. - Continue present medications. - Use fiber, for example Citrucel, Fibercon, Konsyl or Metamucil. - Repeat colonoscopy in 10 years for screening purposes. My findings are described in the full procedure note, which is enclosed. If I can be of further assistance, please feel free to contact me at Doctor phone number(s): Work: . Sincerely, Elder Wheeler MD 12/20/2020 6:56:11 AM This report has been signed electronically.
== END 2020-12-20 08:22 ==
LOC: EN 05:32 → AC 05:34
PROVIDERS: PCP Family Medicine; Referring Provider Family Medicine; Visit Provider Surgery
PROC: 0DJD8ZZ Inspection of Lower Intestinal Tract, Via Natural or Artificial Opening Endoscopic (ICD-10-PCS; CPT 45378; principal; 2020-12-20 06:25)
DX: K62.5 Hemorrhage of anus and rectum (principal); K64.1 Second degree hemorrhoids; M19.90 Unspecified osteoarthritis, unspecified site; F32.9 Major depressive disorder, single episode, unspecified; Z79.899 Other long term (current) drug therapy
CPT/HCPCS: 45378; 87426; C9803; J7120; J2405

== ENCOUNTER 2021-05-16 09:20 | Outpatient (CLI) | payer OTHER, SELFPAY | END 2021-05-16 23:59 | disposition short-term general hospital (02) | LOC: LABSPEC 05-17 09:20 | PROVIDERS: PCP Family Medicine; Visit Provider Family Medicine | DX: U07.1 COVID-19 (principal) | CPT/HCPCS: 87635; U0003; U0005 ==

== ENCOUNTER 2021-05-23 11:37 | Outpatient (CLI) | payer OTHER, SELFPAY ==
[2021-05-23 11:48] VITALS: BP 143/90; PULSE 99; RESP 16; TEMP 36.8; O2SAT 97; BMI 19.8
[2021-05-23] MEDS: 0.9% Saline Lock 10 ML Syringe IV (11:52)
[2021-05-23 12:55] VITALS: BP 105/66; PULSE 87; RESP 16; TEMP 37.1; O2SAT 100
[2021-05-23 13:50] VITALS: BP 112/65; PULSE 94; RESP 16; TEMP 36.4; O2SAT 100
== END 2021-05-23 23:59 | disposition home or self-care (01) ==
LOC: MS3OUT 11:37 → MS3 11:38
PROVIDERS: PCP Family Medicine; Referring Provider Nurse Practitioner Adult Health; Visit Provider Nurse Practitioner Adult Health
DX: Z23 Encounter for immunization (principal); U07.1 COVID-19
CPT/HCPCS: J7050; M0245; Q0245; A4216

== ENCOUNTER → 2022-08-21 | Outpatient (CLI) | payer OTHER, SELFPAY ==
[2022-08-23 15:08] LABS: G6PD Quant Test 263 (127-427)
== END | disposition home or self-care (01) ==
LOC: BFHLAB 10:27
PROVIDERS: PCP Family Medicine; Referring Provider Family Medicine; Visit Provider Nurse Practitioner Family
DX: B60.09 Other babesiosis (principal)
CPT/HCPCS: 36415; 82955

== ENCOUNTER 2022-08-23 11:00 | Outpatient (RCR) | payer OTHER, SELFPAY ==
--- NOTE | 2022-07-04 12:41 | HP.OTEVAL_ITS ---
Patient's Visit Information CASPER RUBI is a 62 year old F, referred to Occupational Therapy by GUS Leonardo, with a diagnosis of bilateral medi. eip. Date of Evaluation: 06/28/22 Occupational Therapist: Zuly Levi, SUKHDEEP/Eliza, CHT - Subjective This 62 year old female was seen for OT eval with dx of medial epicondylitis. pt has struggled with pain for years. pt has ulnar nerve transposition submuscular in past. pt states last two weeks pain has sign. increased. pt recent dx with a type of upper [place] disease and on new medication. pt is not sure if this is affecting her joints and causing more pain- pt states this limits her with all ADLs and home mtg. and does keep her from sleeping. pt is hopeful she can decrease her pain to return to her IADls and home mtg tasks. - Pain bilateral elbow 5 Pain Intensity Range: 4, 7 - ROM Shoulder: right/left WNL Elbow: right/left WNL Forearm: right/left ROM Comments: pt demo full ROM of bilateral UE- pain at end ranges of bilateral elbows - Strength Design Project Manager: right 50# left 50# Lateral Pinch: right 10# left 8# Tripod Pinch: right 6# left 6# - Sensation Sensation Comments: denies - Quick DASH-Disab of Arm,Shoulder& Hand Quick DASH Score: 50.0000 - Tennis Elbow Tennis Elbow Score: 55 - Goals Goal:100% adherence to protocol: Yes Comment: Medial epicondylitis conservative guidelines Goal:ROM equal to unaffected hand: Yes Goal:Design Project Manager/Pinch strength at least 75% of unaffected hand: Yes Goal:No pain with affected hand use: Yes Goal:Full use of affected hand in daily activities including: Yes Comment: brace use Other Goal: pt will demo understanding of using protective bracing by end of 3rd visits. - Rehabilitation General Assessment: pt painful with palpation to bilateral medial epicondyles. painful with resistive testing. Based on clinical reasoning and pt report pt demo with positive symptoms of medial epicondylitis. pt would benefit from skilled OT services 2x week for 4 weeks to decrease pts pain to return pt to PLOF. Rehabilitation Potential: Good - Anticipated Interventions A/AAROM/PROM, Strengthening, Triggerpoint Release, Modalities, Orthoses, Joint Protection/Energy Conservation, Education re assistive Equipment, Education re Diagnosis, Home Program - Visit Plan Frequency: 2x /Week Duration: 4 Weeks General Plan: non-surgical mtg of medial epicondylitis. use of wrist brace. with counterforce brace. heat. friction massage. stretching TEXT: Thank you for the opportunity to evaluate your patient. For Medicare and Medicare HMO plans, please review the plan of care and approve it. It will need to be FAXED BACK to us at [phone] for Medicare purposes. Please let me know if there are questions or concerns regarding this plan of care. Physician Signature: Date:
--- NOTE | 2022-12-08 10:01 | HP.OTDCNRP_ITS ---
Patient Information Patient Information: CASPER RUBI was seen in my office for initial evaluation on 06/28/22. The following Plan of Care was established for this patient: POC Established Initial Frequency: 2x /Week Initial Duration: 4 Weeks Plan: cont. with cupping- bilateral elbow followed with posture and eccentric ex medial epi guidelines Anticipated Interventions Anticipated Interventions: A/AAROM/PROM, Strengthening, Triggerpoint Release, Modalities, Orthoses, Joint Protection/Energy Conservation, Education re assistive Equipment, Education re Diagnosis and Home Program Last Seen Last Seen: This patient was last seen in our office 08/23/22. Pertinent comments regarding their Occupational therapy will appear below: Pt was seen for 8 OT session for bilateral elbow pain. Therapist ed. in ergo to avoid joint stress on bilateral elbows- ed. on bracing and postural strengthe [place] to strengthen UB. pt was demo understanding of her HEP and at this time has not scheduled further apts. and in now d/c due to time lapse in services. At this point I will be discontinuing this patient from occupational therapy. I would be happy to see this patient again in the future if found appropriate by the physician. Thank you! Zuly Levi, OTR/L, CHT
== END 2022-08-23 19:00 | disposition home or self-care (01) ==
LOC: OT 11:00
PROVIDERS: PCP Family Medicine; Referring Provider Physician Assistant; Visit Provider Physician Assistant
DX: M77.01 Medial epicondylitis, right elbow (principal); M77.02 Medial epicondylitis, left elbow
CPT/HCPCS: 97110; 97140; 97166; 97530

== ENCOUNTER → 2022-10-11 | Outpatient (CLI) | payer OTHER, SELFPAY ==
--- NOTE | 2022-10-11 13:09 | RAD_ITS ---
EXAM: XR RIGHT FINGERS, 2 OR MORE VIEWS CLINICAL INDICATION: THUMB INJURY right thumb injury last night, hit against a piece of wood and bent TECHNIQUE: Frontal, lateral and oblique views of the fingers of the right hand. COMPARISON: No relevant prior studies available. FINDINGS: BONES/JOINTS: Question small avulsive fracture at the level of the 1st DIP joint. No sclerotic or destructive changes observed. SOFT TISSUES: Unremarkable. No soft tissue swelling or gas. No radiopaque foreign body. OTHER FINDINGS: pain now. RAD/Finger(s) Min 2 Views IMPRESSION: Question small avulsive fracture at the level of the 1st DIP joint. Electronically Signed: Henry Kulkarni MD at 17:15 EDT ,
== END | disposition home or self-care (01) ==
LOC: MTRAD 13:06
PROVIDERS: PCP Family Medicine; Referring Provider Family Medicine; Visit Provider Family Medicine
DX: S69.91XA Unspecified injury of right wrist, hand and finger(s), initial encounter (principal); X58.XXXA Exposure to other specified factors, initial encounter
CPT/HCPCS: 73140

== ENCOUNTER → 2022-10-18 | Outpatient (CLI) | payer OTHER, SELFPAY ==
[2022-10-18 16:19] LABS: Absolute Lymphocyte Count 0.98 X10^3/uL (0.83-4.51); Absolute Neutrophil Count 1.8 X10^3/uL (2.0-7.7); Basophil# 0.08 X10^3/uL; Basophil% 2.3 % (0-1); Eosinophil# 0.04 X10^3/uL; Eosinophils% 1.1 % (0-5); Hematocrit 36.9 % (37-47); Hemoglobin 12.7 g/dL (12.0-15.0); Lymphocyte # 0.98 X10^3/ul (0.83-4.51); Mean Corp Hgb Conc 34.4 g/dL (32-36); Mean Corpuscular Hgb 33.2 pg (27.0-32.0); Mean Corpuscular Volume 96.6 fL (81-99); Mean Platelet Vol. 10.8 fl (6.2-12.0); Monocyte# 0.62 X10^3/uL; Monocyte% 17.7 % (0-10); NRBC Flagged by Analyzer 0 % (0-5); Neutrophil # 1.77 X10^3/uL (2.7-7.7); Neutrophil % 50.6 % (47-70); Platelet Count 302 K/mm3 (150-450); RBC Distribution Width CV 12.9 % (11.6-14.6); RBC Distribution Width SD 45.8 fl (35.1-43.9); Red Blood Count 3.82 M/mm3 (4.2-5.4); White Blood Count 3.5 K/mm3 (4.4-11.0)
[2022-10-18 16:34] LABS: ALB/GLOB Ratio 1.2 RATIO (0.9-2.4); AST(SGOT) 29 U/L (15-37); Alanine Aminotransfer ALT/SGPT 28 U/L (13-56); Alkaline Phosphatase 114 U/L (45-117); Anion Gap 9 (5-15); BUN 23 mg/dL (7-18); Calcium,Total 9.6 mg/dL (8.5-10.1); Chloride 105 mmol/L (98-107); Creatinine, Serum 0.74 mg/dL (0.55-1.02); EST Glomerular Filtration Rate 85 mL/min (>60); Est Glom Filt Rate - Afr Amer 102 mL/min (>60); Ferritin 74 ng/mL (8-252); Globulin 3.2 g/dL (2.2-4.2); Glucose 92 mg/dL (74-106); Iron 124 ug/dL (50-170); Potassium 4.4 mmol/L (3.5-5.1); Protein, Total 7.2 g/dL (6.4-8.2); Sodium Level 138 mmol/L (136-145)
== END | disposition home or self-care (01) ==
PROVIDERS: PCP Family Medicine; Referring Provider Nurse Practitioner Family; Visit Provider Nurse Practitioner Family
DX: G31.84 Mild cognitive impairment of uncertain or unknown etiology (principal); M62.81 Muscle weakness (generalized); G25.81 Restless legs syndrome; F41.9 Anxiety disorder, unspecified; F32.A Depression, unspecified; G89.4 Chronic pain syndrome; B60.09 Other babesiosis; R06.02 Shortness of breath; R53.82 Chronic fatigue, unspecified
CPT/HCPCS: 80053; 82728; 83540; 85025

== ENCOUNTER → 2022-11-28 | Outpatient (CLI) | payer OTHER, SELFPAY ==
[2022-11-28 12:29] LABS: Absolute Lymphocyte Count 1.11 X10^3/uL (0.83-4.51); Absolute Neutrophil Count 4.3 X10^3/uL (2.0-7.7); Basophil# 0.09 X10^3/uL; Basophil% 1.4 % (0-1); Eosinophil# 0.08 X10^3/uL; Eosinophils% 1.3 % (0-5); Hematocrit 34.5 % (37-47); Hemoglobin 10.9 g/dL (12.0-15.0); Lymphocyte # 1.11 X10^3/ul (0.83-4.51); Lymphocyte % 17.7 % (19-41); Mean Corp Hgb Conc 31.6 g/dL (32-36); Mean Corpuscular Volume 101.2 fL (81-99); Monocyte# 0.68 X10^3/uL; Monocyte% 10.8 % (0-10); NRBC Flagged by Analyzer 0 % (0-5); Neutrophil # 4.29 X10^3/uL (2.7-7.7); Neutrophil % 68.5 % (47-70); Platelet Count 286 K/mm3 (150-450); RBC Distribution Width CV 12.4 % (11.6-14.6); RBC Distribution Width SD 46.4 fl (35.1-43.9); Red Blood Count 3.41 M/mm3 (4.2-5.4); White Blood Count 6.3 K/mm3 (4.4-11.0)
[2022-11-28 13:19] LABS: ALB/GLOB Ratio 1.1 RATIO (0.9-2.4); AST(SGOT) 31 U/L (15-37); Alanine Aminotransfer ALT/SGPT 30 U/L (13-56); Albumin, Serum 3.6 g/dL (3.2-5.0); Alkaline Phosphatase 105 U/L (45-117); Anion Gap 6 (5-15); BUN 23 mg/dL (7-18); BUN/Creat Ratio 33.7 RATIO (10-20); Calcium,Total 9.1 mg/dL (8.5-10.1); Chloride 104 mmol/L (98-107); Creatinine, Serum 0.68 mg/dL (0.55-1.02); EST Glomerular Filtration Rate 93 mL/min (>60); Est Glom Filt Rate - Afr Amer 113 mL/min (>60); Ferritin 79 ng/mL (8-252); Globulin 3.3 g/dL (2.2-4.2); Glucose 89 mg/dL (74-106); Potassium 3.9 mmol/L (3.5-5.1); Protein, Total 6.9 g/dL (6.4-8.2); Sodium Level 137 mmol/L (136-145)
== END | disposition home or self-care (01) ==
PROVIDERS: PCP Family Medicine; Referring Provider Family Medicine; Visit Provider Nurse Practitioner Family
DX: G25.81 Restless legs syndrome (principal); F41.9 Anxiety disorder, unspecified; F32.A Depression, unspecified; G31.84 Mild cognitive impairment of uncertain or unknown etiology; M62.81 Muscle weakness (generalized); G89.4 Chronic pain syndrome; B60.09 Other babesiosis; R06.02 Shortness of breath; R53.82 Chronic fatigue, unspecified
CPT/HCPCS: 36415; 80053; 82728; 85025

== ENCOUNTER 2022-12-03 11:27 | Emergency (ER) | payer OTHER, SELFPAY ==
[2022-12-03 11:28] VITALS: BP 108/75; PULSE 120; RESP 16; TEMP 36.5; O2SAT 95; BMI 20.5
--- NOTE | 2022-12-03 11:53 | EDS_ITS ---
HPI History of Present Illness Chief Complaint: General Illness Detail of Chief Complaint: Diarrhea, fatigue, weakness Informant: patient Onset/Context/Timing Onset: Days Narrative Narrative: Patient presents with acute on chronic complaints. 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 She states that she gets frequent diarrhea because of this. Diarrhea has been worse over the past several days. She believes she is dehydrated and has had fever up to 99. She states her temperature is normal at 98.0. She states her abdomen feels bloated. [facility] Medical History Arthritis Babesiosis Cancer Cancer phobia Cardiomyopathy in diseases classified elsewhere Cough productive of purulent sputum Daytime hypersomnia DDD (degenerative disc disease), lumbar Degenerative disc disease, cervical Dermatitis Disproportion of reconstructed breast Encounter for adjustment or management of vascular access device History of echocardiogram History of left breast cancer History of stress test Hypersomnia, unspecified Late effect of radiation Left ventricular systolic dysfunction Lymphedema Major depressive disorder Neck pain Non-smoker Osteoarthritis of right knee PFO (patent foramen ovale) Post-menopausal Post-nasal drip Right knee pain RLS (restless legs syndrome) Segmental and somatic dysfunction of cervical region Segmental and somatic dysfunction of lumbar region Segmental and somatic dysfunction of pelvic region Segmental and somatic dysfunction of thoracic region Sinusitis, acute SOB (shortness of breath) on exertion Verrucae vulgaris Wears glasses Home Medications calcium carbonate 600 mg-vitamin D3 10 mcg (400 unit) tablet 1,200 mg PO BID 01/29/14 [History Last Taken 08/24/16] multivitamin with folic acid 400 mcg tablet 1 tab PO DAILY 01/29/14 [History Last Taken 08/24/16] biotin 5 mg capsule 5 mg PO DAILY SUPPLEMENT 05/11/17 [History Last Taken Unknown] magnesium 250 mg tablet 500 mg PO BID 09/20/17 [History Last Taken Unknown] omega-3 fatty acids 1,000 mg capsule (Fish Oil Concentrate) 1,000 mg PO BID 09/24/18 [History Last Taken Unknown] turmeric root extract 500 mg capsule 1,000 mg PO DAILY 09/24/18 [History Last Taken Unknown] mecobalamin (vitamin B12) 1,000 mcg chewable tablet 1,000 mcg PO DAILY 11/19/19 [History Last Taken Unknown] benzonatate 100 mg capsule 100 mg PO BID-TID PRN cough #180 caps 01/20/20 [Rx Last Taken Unknown] venlafaxine 150 mg capsule,extended release 24 hr 150 mg PO DAILY 07/22/20 [History Last Taken 12/20/20] ropinirole 0.25 mg tablet 0.75 mg PO QHS 10/25/20 [History Last Taken Unknown] codeine sulfate 15 mg tablet 15 mg PO QHS 12/16/20 [History Last Taken Unknown] dupilumab 300 mg/2 mL subcutaneous pen injector (Dupixent) mg subcut 04/24/22 [History Last Taken Unknown] vancomycin 125 mg capsule 125 mg PO Q6H 10 days #40 caps 12/03/22 [Rx Last Taken Unknown] Allergy/AdvReac Type Severity Reaction Status Date / Time adhesive Allergy Itching Verified 12/03/22 11:28 carvedilol [From Coreg] Allergy FATIGUE Verified 12/03/22 11:28 hydromorphone HCl Allergy Itching Verified 12/03/22 11:28 [From Dilaudid] Family History Grandfather Colon cancer Mother Hypertension Sister Cancer Surgical History H/O hernia repair History of back surgery History of bilateral mastectomy History of eye surgery History of hysterectomy History of left oophorectomy History of modified radical mastectomy of left breast History of prophylactic mastectomy of right breast History of tonsillectomy S/P repair of anterior cruciate ligament tear duct tube placement Social History Smoking Status: Never smoker alcohol intake: never substance use type: does not use ROS ROS ED Constitutional Constitutional ED: Reports fever(s); Denies chills Eyes Eyes: Denies change in vision or discharge from eye(s) ENT ENT ED: Denies discharge from eye(s), rhinorrhea or sore throat Cardiovascular Cardiovascular: Denies chest pain or palpitations Respiratory/Chest Respiratory/Chest: Denies cough or dyspnea Gastrointestinal Gastrointestinal: Reports abdominal pain, diarrhea and nausea; Denies vomiting Genitourinary Genitourinary ED: Denies dysuria Musculoskeletal Musculoskeletal: Reports myalgias; Denies back pain or extremity pain Integumentary Denies Abrasions or rash Neurologic Neurologic: Reports weakness; Denies headache(s) Allergic/Immunologic Allergic/Immunologic ED: Denies lip swelling or urticaria EXAM Physical Exam Const Vital Signs: 12/03/22 11:28 12/03/22 12:15 12/03/22 15:40 Temperature 97.7 F L Temperature Source Temporal Pulse Rate 120 H 105 H Respiratory Rate 16 18 Respiratory Effort Normal Non-Labored Blood Pressure 108/75 127/56 H Blood Pressure Mean 86 79 Pulse Ox 95 98 Oxygen Delivery Method Room Air Room Air Positive well nourished and well developed General Appearance ED: well developed HEENT Reports normocephalic and head/scalp atraumatic Eyes PERRL and EOMs intact bilaterally Neck supple Chest Wall inspection of chest normal and palpation of chest normal Resp normal respiratory effort and clear to auscultation bilaterally Cardio regular rhythm Rate: tachycardic GI GI Narrative: Abdomen soft and slightly distended. Hypoactive but present bowel sounds noted. No guarding or rebound. Palpation: soft Extremity normal to inspection Neuro oriented x3 and no sensory deficits noted Sensorium / Orientation: alert Motor Exam: strength 5/5 throughout Psych mental status grossly normal Skin no rashes or lesions noted MDM MDM MDM Narrative Medical decision making narrative: Patient given IV fluids. Labwork obtained to evaluate for leukocytosis, anemia, and electrolyte derangement. Urinalysis obtained to evaluate for infection/hematuria. Stool studies sent. CT of the abdomen and pelvis with IV contrast obtained to evaluate for colitis. Lab Data Attestation: I reviewed the patient's lab results. Labs: Laboratory Results - last 24 hr 12/03/22 12/03/22 12/03/22 11:40 13:07 15:34 WBC 10.0 RBC 4.04 L Hgb 13.2 Hct 39.8 MCV 98.5 MCH 32.7 H MCHC 33.2 RDW Std Deviation 44.9 H RDW Coeff of Sen 12.2 Plt Count 300 MPV 9.9 Immature Gran % (Auto) 0.200 Neut % (Auto) 81.4 H Lymph % (Auto) 4.0 L Gilmer % (Auto) 13.1 H Eos % (Auto) 0.4 Baso % (Auto) 0.9 Absolute Neuts (auto) 8.2 H Absolute Lymphs (auto) 0.40 L Nucleated RBC % 0 ESR 23 Sodium 136 Potassium 3.3 L Chloride 103 Carbon Dioxide 26.0 Anion Gap 7 BUN 12 Creatinine 0.75 Estim Creat Clear Calc 65.16 Est GFR (MDRD) Af Amer 101 Est GFR (MDRD) Non-Af 84 BUN/Creatinine Ratio 16.1 Glucose 157 H Lactic Acid 1.2 Calcium 8.4 L Total Bilirubin 0.50 Direct Bilirubin 0.11 AST 33 ALT 43 Alkaline Phosphatase 73 Lactate Dehydrogenase 213 C-React Prot Ext Range 71.30 H Total Protein 6.2 L Albumin 3.0 L Globulin 3.2 Urine Color Yellow Urine Clarity Clear Urine pH 7.0 Ur Specific [place] 1.010 Urine Protein 30 H Urine Glucose (UA) Normal Urine Ketones Negative Urine Occult Blood 25 H Urine Nitrite Negative Urine Bilirubin Negative Urine Urobilinogen Normal Ur Leukocyte Esterase 25 H Urine RBC 0 SEEN Urine WBC 0 SEEN Ur Squamous Epith Cells 0 SEEN Urine Bacteria 0 SEEN Urine Mucus 0 SEEN Radiography Diagnostic Testing: Clinical Impression(s) from Imaging Studies Abdomen/Pelvis CT 12/03/22 12:32 IMPRESSION: Diffuse colitis, likely pseudomembranous colitis,) (with a moderate amount of free fluid but no abscess or perforation. N.B. : The above Results were Read Back by Billy Dickerson MD to Michaela Lala MD, and understanding confirmed on 12/03/2022 13:45:55 (ET). Electronically Signed: Billy Dickerson MD at 13:47 EDT Reading Location ID and State: [id number] / [employer] , Service support , ADDENDUM: 12/03/22 1353 IMPRESSION: Diffuse colitis, likely pseudomembranous colitis,) (with a moderate amount of free fluid but no abscess or perforation. N.B. : The above Results were Read Back by Billy Dickerson MD to Michaela Lala MD, and understanding confirmed on 12/03/2022 13:45:55 (ET). Electronically Signed: Billy Dickerson MD at 13:47 EDT Reading Location ID and State: [id number] / [employer] Tel , Service support , Treatment and Re-Evaluation :: CBC was normal white count at 10.0 with 81% neutrophils. Chemistry studies reveal slightly low potassium at 3.3. This is replaced orally. Urinalysis reveals no evidence of infection. CT scan of the abdomen and pelvis with IV contrast reveals diffuse colitis, likely pseudomembranous with moderate free fluid. Stool studies are still pending when I spoke with Dr. Redman. We discussed possibility of pseudomembranous colitis from C. difficile versus autoimmune reaction given her babesiosis. He recommended giving her a dose of Solu-Medrol and also adding LDH, lactic acid, sed rate, CRP. He also asked for fecal calprotectin. Lactic acid is normal. CRP is elevated at 71. LDH is normal at 213. Sed rate is pending at this time as well as the further stool studies. C. difficile PCR as well as the C. difficile toxin are both positive. This is discussed with the patient. At this time she feels like she can go home with oral vancomycin. She was encouraged to return for any concerns of worsening symptoms or dehydration. Discharge Plan Triage Chief Complaint: General Illness ED Provider: Michaela Lala Dx/Rx/DC Orders Clinical Impression: C. difficile colitis Instructions: Clostridium Difficile Infection, My C. Diff Infection Treatment Plan Prescriptions: New vancomycin 125 mg capsule 125 mg PO Q6H 10 Days Qty: 40 0RF No Action turmeric root extract 500 mg capsule 1,000 mg PO DAILY omega-3 fatty acids [Fish Oil Concentrate] 1,000 mg capsule 1,000 mg PO BID ropinirole 0.25 mg tablet 0.75 mg PO QHS Rx Instructions: 0.25mg plus 0.5mg administer 1-3 hours before bedtime Dupixent Pen 300 mg/2 mL pen injector subcut calcium carbonate-vitamin D3 1 EACH tablet 1,200 mg PO BID Patient Comments: supplement multivitamin with folic acid 1 TABLET tablet 1 tab PO DAILY Patient Comments: supplement magnesium 250 mg tablet 500 mg PO BID Patient Comments: supplement mecobalamin (vitamin B12) 1,000 MCG tablet,chewable 1,000 mcg PO DAILY venlafaxine 150 mg capsule,extended release 24hr 150 mg PO DAILY Patient Comments: DEPRESSION biotin 5 MG capsule 5 mg PO DAILY codeine sulfate 15 mg Tablet 15 mg PO QHS benzonatate 100 mg capsule 100 mg PO BID-TID PRN (Reason: cough) Qty: 180 3RF Primary Care Provider: Tien Lloyd Referrals: Tien Lloyd DO [Primary Care Provider] - 1 Week FriendSagar DO [Med Staff - Active Staff] - As Needed Elder Early MD [Med Staff - Active Staff] - As Needed Activity Restrictions/Additional Instructions: As discussed, please stop the azithromycin that you are on. Please complete the full course of vancomycin. Please see your doctor in 7 to 10 days for follow- up. Please return to the emergency room for any worsening symptoms or dehydration concerns. Disposition Disposition: Home, Self Care
[2022-12-03 11:58] LABS: Absolute Neutrophil Count 8.2 X10^3/uL (2.0-7.7); Basophil# 0.09 X10^3/uL; Basophil% 0.9 % (0-1); Differential Indicated SCAN CRITERIA MET; Eosinophil# 0.04 X10^3/uL; Eosinophils% 0.4 % (0-5); Hematocrit 39.8 % (37-47); Hemoglobin 13.2 g/dL (12.0-15.0); Mean Corp Hgb Conc 33.2 g/dL (32-36); Mean Corpuscular Hgb 32.7 pg (27.0-32.0); Mean Corpuscular Volume 98.5 fL (81-99); Mean Platelet Vol. 9.9 fl (6.2-12.0); Monocyte# 1.32 X10^3/uL; Monocyte% 13.1 % (0-10); NRBC Flagged by Analyzer 0 % (0-5); Neutrophil # 8.17 X10^3/uL (2.7-7.7); Neutrophil % 81.4 % (47-70); POSITIVE DIFFERENTIAL YES; Platelet Count 300 K/mm3 (150-450); RBC Distribution Width CV 12.2 % (11.6-14.6); RBC Distribution Width SD 44.9 fl (35.1-43.9); Red Blood Count 4.04 M/mm3 (4.2-5.4)
[2022-12-03] MEDS: 0.9% Normal Saline 1,000 ML 1000 ML IV (12:13)
[2022-12-03 12:14] LABS: AST(SGOT) 33 U/L (15-37); Alanine Aminotransfer ALT/SGPT 43 U/L (13-56); Alkaline Phosphatase 73 U/L (45-117); Anion Gap 7 (5-15); BUN 12 mg/dL (7-18); BUN/Creat Ratio 16.1 RATIO (10-20); Bilirubin, Direct 0.11 mg/dL (0.00-0.30); Calcium,Total 8.4 mg/dL (8.5-10.1); Chloride 103 mmol/L (98-107); Creatinine, Serum 0.75 mg/dL (0.55-1.02); EST Glomerular Filtration Rate 84 mL/min (>60); Est Glom Filt Rate - Afr Amer 101 mL/min (>60); Estimated Creatinine Clearance 65.16 ml/min; Globulin 3.2 g/dL (2.2-4.2); Glucose 157 mg/dL (74-106); Potassium 3.3 mmol/L (3.5-5.1); Protein, Total 6.2 g/dL (6.4-8.2); Sodium Level 136 mmol/L (136-145)
--- NOTE | 2022-12-03 12:32 | CT_ITS ---
STUDY: CT ABDOMEN AND PELVIS WITH CONTRAST REASON FOR EXAM: Female, 62 years old. abd pain AND DIARRHEA. PRIOR HYSTERECTOMY RADIATION DOSAGE (If Supplied By Facility): CTDIvol = ( 9.96 ) mGy, DLP = ( 481.35 ) mGycm TECHNIQUE: Transaxial images were obtained from the dome of the diaphragm to the symphysis pubis without oral contrast. IV 75mL Isovue-370 was administered. Sagittal and coronal images were reconstructed. Individualized dose optimization techniques were used for this CT. COMPARISON: 11/26/2018 FINDINGS: The visualized lung bases are unremarkable. The visualized portions of the heart are within normal limits. Normal liver. Normal gallbladder and extrahepatic biliary system. Normal spleen. Normal pancreas. Normal bilateral adrenal glands. Normal right kidney. Normal left kidney. There is a small hiatal hernia. Normal small intestine. Diffuse wall thickening and stranding of surrounding fat of the entire colon consistent with the infectious colitis namely pseudomembranous colitis. Ischemia is felt to be unlikely due to normal enhancement of the mesenteric vessels and the mucosa of the colon. Moderate amount of free fluid in the pelvis but no loculated fluid collection to suggest abscess. No pneumoperitoneum to suggest perforation. The appendix is visualized and appears normal. Normal abdominal aorta. Normal inferior vena cava. Normal retroperitoneum. Normal urinary bladder. Normal abdominal wall. Status post transpedicular fixation in the lower lumbar spine. CT/Abdomen/Pelvis W IV Cont ONLY IMPRESSION: Diffuse colitis, likely pseudomembranous colitis,) (with a moderate amount of free fluid but no abscess or perforation. N.B. : The above Results were Read Back by Billy Dickerson MD to Michaela Lala MD, and understanding confirmed on 12/03/2022 13:45:55 (ET). Electronically Signed: Billy Dickerson MD at 13:47 EDT ,
[2022-12-03] MEDS: Potassium Chloride Oral Tablet 20 MEQ 40 MEQ PO (12:38)
[2022-12-03 13:13] LABS: Bacteria 0 SEEN /hpf (None Seen); Mucous, Urine 0 SEEN /hpf (<or=2+); Red Blood Cells-Urine 0 SEEN /hpf (0-5); Squamous Epithelial Cells - UA 0 SEEN /hpf (5-10); White Blood Cells 0 SEEN /hpf (0-5)
[2022-12-03 13:15] LABS: Color, Urine Yellow (Yellow); Glucose, Dipstick Normal (Normal); Ketone-Dipstick Negative (Negative); Leukocyte Esterase-Dipstick 25 /ul (Negative); Nitrite-Dipstick Negative (Negative); Occult Blood-Urine 25 /ul (Negative); Protein-Dipstick 30 mg/dl (Negative); Urine Bilirubin Dipstick Negative (Negative); Urine Clarity Clear (Clear); Urine Urobilinogen Normal (Normal)
[2022-12-03] MEDS: 0.9% Normal Saline 1,000 ML 150 ML IV (14:35)
[2022-12-03] MEDS: MethylPREDNISolone 125 MG/2 ML Vial 80 MG IV (15:32)
[2022-12-03 15:40] VITALS: BP 127/56; PULSE 105; RESP 18; O2SAT 98
[2022-12-03 16:02] LABS: LDH 213 U/L (84-246)
[2022-12-03 16:24] LABS: Lactic Acid 1.2 mmol/L (0.4-1.9)
[2022-12-03 16:35] LABS: Erythrocyte Sedimentation Rate 23 mm/hr (0-30)
[2022-12-03] MEDS: Vancomycin 125 MG/5 ML Susp PO.SYRINGE PO (17:43)
== END 2022-12-03 17:46 | disposition home or self-care (01) ==
PROVIDERS: Emergency Provider Emergency Medicine; PCP Family Medicine; Visit Provider Emergency Medicine
DX: A04.72 Enterocolitis due to Clostridium difficile, not specified as recurrent (principal); I42.9 Cardiomyopathy, unspecified; B60.00 Babesiosis, unspecified; E87.6 Hypokalemia
CPT/HCPCS: 74177; 80048; 80076; 81001; 83605; 83615; 83630; 85025; 85652; 86140; 87177; 87209; 87493; 87506; 96361; 96374; 99285; J7030; Q9967; A4216

== ENCOUNTER → 2022-12-21 | Outpatient (CLI) | payer OTHER, SELFPAY | END | disposition home or self-care (01) | LOC: BFHLAB 13:17 → LABSPEC 13:18 | PROVIDERS: PCP Family Medicine; Referring Provider Family Medicine; Visit Provider Family Medicine | DX: R19.7 Diarrhea, unspecified (principal) | CPT/HCPCS: 83630; 87493 ==

== ENCOUNTER → 2023-01-10 | Outpatient (CLI) | payer OTHER, SELFPAY ==
[2023-01-10 16:09] LABS: QC Malaria Lot#/Exp Date RECORD LOT#/EXP DATE
[2023-01-12 10:15] LABS: Malaria Blood Parasite Interp Negative (Negative)
[2023-01-12 20:03] LABS: Malaria QC Review PASSED
== END | disposition home or self-care (01) ==
LOC: LAB 16:01
PROVIDERS: PCP Family Medicine; Referring Provider Internal Medicine Infectious Disease; Visit Provider Internal Medicine Infectious Disease
DX: B60.00 Babesiosis, unspecified (principal)
CPT/HCPCS: 36415; 87207

== ENCOUNTER → 2023-03-13 | Outpatient (CLI) | payer OTHER, SELFPAY ==
[2023-03-13 12:44] LABS: Anion Gap 3 (5-15); BUN 22 mg/dL (7-18); BUN/Creat Ratio 29.5 RATIO (10-20); Calcium,Total 9.2 mg/dL (8.5-10.1); Chloride 107 mmol/L (98-107); Creatinine, Serum 0.75 mg/dL (0.55-1.02); EST Glomerular Filtration Rate 84 mL/min (>60); Est Glom Filt Rate - Afr Amer 101 mL/min (>60); Glucose 106 mg/dL (74-106); Magnesium 2.3 mg/dL (1.6-2.6); Potassium 4.1 mmol/L (3.5-5.1); Sodium Level 140 mmol/L (136-145)
== END | disposition home or self-care (01) ==
LOC: BFHLAB 10:27
PROVIDERS: PCP Family Medicine; Visit Provider Family Medicine
DX: R25.2 Cramp and spasm (principal)
CPT/HCPCS: 36415; 80048; 83735

== ENCOUNTER → 2023-07-19 | Outpatient (CLI) | payer OTHER, SELFPAY ==
[2023-07-19 15:36] LABS: Absolute Lymphocyte Count 0.82 X10^3/uL (0.83-4.51); Absolute Neutrophil Count 3.3 X10^3/uL (2.0-7.7); Basophil# 0.07 X10^3/uL; Basophil% 1.5 % (0-1); Eosinophil# 0.05 X10^3/uL; Eosinophils% 1.1 % (0-5); Hematocrit 39.7 % (37-47); Hemoglobin 12.6 g/dL (12.0-15.0); Lymphocyte # 0.82 X10^3/ul (0.83-4.51); Lymphocyte % 17.7 % (19-41); Mean Corp Hgb Conc 31.7 g/dL (32-36); Mean Corpuscular Hgb 31.9 pg (27.0-32.0); Mean Corpuscular Volume 100.5 fL (81-99); Mean Platelet Vol. 10.1 fl (6.2-12.0); Monocyte# 0.43 X10^3/uL; Monocyte% 9.3 % (0-10); NRBC Flagged by Analyzer 0 % (0-5); Neutrophil # 3.26 X10^3/uL (2.7-7.7); Neutrophil % 70.2 % (47-70); Platelet Count 336 K/mm3 (150-450); RBC Distribution Width CV 13.5 % (11.6-14.6); RBC Distribution Width SD 49.5 fl (35.1-43.9); Red Blood Count 3.95 M/mm3 (4.2-5.4); White Blood Count 4.6 K/mm3 (4.4-11.0)
[2023-07-19 15:56] LABS: Vitamin B12 1990 pg/mL (211-911); Vitamin D,25 Hydroxy 75.1 ng/mL
[2023-07-19 16:19] LABS: ALB/GLOB Ratio 1.1 RATIO (0.9-2.4); AST(SGOT) 36 U/L (15-37); Alanine Aminotransfer ALT/SGPT 32 U/L (13-56); Albumin, Serum 3.9 g/dL (3.2-5.0); Alkaline Phosphatase 87 U/L (45-117); Anion Gap 8 (5-15); BUN 19 mg/dL (7-18); BUN/Creat Ratio 25.3 RATIO (10-20); Calcium,Total 9.4 mg/dL (8.5-10.1); Chloride 104 mmol/L (98-107); Creatinine, Serum 0.75 mg/dL (0.55-1.02); EST Glomerular Filtration Rate 83 mL/min (>60); Est Glom Filt Rate - Afr Amer 100 mL/min (>60); Globulin 3.5 g/dL (2.2-4.2); Glucose 98 mg/dL (74-106); Potassium 4.3 mmol/L (3.5-5.1); Protein, Total 7.4 g/dL (6.4-8.2); Sodium Level 139 mmol/L (136-145); Thyroid Stim Hormone (TSH) 1.37 uIU/mL (0.358-3.74)
[2023-07-19 16:20] LABS: Internal QC Validated? YES +Cl - CLEAR BKGD; Monotest Negative (Negative); Record Kit Lot#, Mono 13231163
== END | disposition home or self-care (01) ==
LOC: BFHLAB 11:12
PROVIDERS: PCP Family Medicine; Visit Provider Family Medicine
DX: R53.83 Other fatigue (principal)
CPT/HCPCS: 36415; 80053; 82306; 82607; 84443; 85025; 86308

== ENCOUNTER → 2024-02-04 | Outpatient (CLI) | payer OTHER, SELFPAY ==
[2024-02-08 06:10] LABS: Immunoglobulin A 316 mg/dL (87-352); Immunoglobulin E 13 IU/mL (6-495); Immunoglobulin G 838 mg/dL (586-1602); Immunoglobulin M 91 mg/dL (26-217); Lyme IgG P18 Ab Absent (.); Lyme IgG P23 Ab Absent (.); Lyme IgG P28 Ab Absent (.); Lyme IgG P30 Ab Absent (.); Lyme IgG P39 Ab Absent (.); Lyme IgG P41 Ab Present (.); Lyme IgG P45 Ab Absent (.); Lyme IgG P58 Ab Absent (.); Lyme IgG P66 Ab Absent (.); Lyme IgG P93 Ab Absent (.); Lyme IgG WB Interpretation Negative (.); Lyme IgM P23 Ab Absent (.); Lyme IgM P39 Ab Absent (.); Lyme IgM P41 Ab Present (.); Lyme IgM WB Interpretation Negative (.)
== END | disposition home or self-care (01) ==
PROVIDERS: PCP Family Medicine; Referring Provider Internal Medicine; Visit Provider Internal Medicine
DX: Z11.2 Encounter for screening for other bacterial diseases (principal); A69.20 Lyme disease, unspecified; M25.50 Pain in unspecified joint; R53.83 Other fatigue
CPT/HCPCS: 36415; 82784; 82785; 86617

== ENCOUNTER → 2024-06-02 | Outpatient (CLI) | payer OTHER, SELFPAY ==
[2024-06-06 16:08] LABS: Lyme IgG P18 Ab Absent (.); Lyme IgG P23 Ab Absent (.); Lyme IgG P28 Ab Absent (.); Lyme IgG P30 Ab Absent (.); Lyme IgG P39 Ab Absent (.); Lyme IgG P41 Ab Absent (.); Lyme IgG P45 Ab Absent (.); Lyme IgG P58 Ab Absent (.); Lyme IgG P66 Ab Absent (.); Lyme IgG P93 Ab Absent (.); Lyme IgG WB Interpretation Negative (.); Lyme IgM P23 Ab Absent (.); Lyme IgM P39 Ab Absent (.); Lyme IgM P41 Ab Present (.); Lyme IgM WB Interpretation Negative (.)
== END | disposition home or self-care (01) ==
PROVIDERS: PCP Family Medicine; Referring Provider Internal Medicine; Visit Provider Internal Medicine
DX: Z11.2 Encounter for screening for other bacterial diseases (principal); A69.20 Lyme disease, unspecified; M25.50 Pain in unspecified joint; R53.83 Other fatigue
CPT/HCPCS: 36415; 86617